=== PATIENT | female | born 1960 | race Caucasian/White ===

== ENCOUNTER 2020-08-11 08:29 | Outpatient (REF) | payer OTHER, SELFPAY ==
[2020-08-11 15:05] LABS: HCT 43.4 % (36.0-46.0); HGB 14.1 g/dL (11.2-15.7); MCH 28.1 pg (27.0-33.0); MCHC 32.5 % (32.0-36.0); MCV 86.5 fL (80-95); MPV 10.3 fL (8.0-11.0); Platelet Count 339 10^3/uL (130-400); RBC 5.02 10^6/uL (3.93-5.22); RDW 13.5 % (11.7-14.6); RDW-SD 42.4 fL; WBC 8.08 10^3/uL (4.4-10.8)
[2020-08-11 15:21] LABS: Anion Gap 11.7 mmol/L (3-11); BUN 22 mg/dL (7-18); CO2 28.3 mmol/L (21.0-32.0); CREATININE 1.1 mg/dL (0.55-1.02); Calcium 9.4 mg/dL (8.5-10.1); Calculated LDL 149 mg/dL (<100); Chloride 103 mmol/L (98-107); Cholesterol 237 mg/dL (<200); Estimated GFR 50.67 (mL/min/1.73m2); Glucose 88 mg/dL (74-106); HDL Cholesterol 63 mg/dL (40-60); Potassium 4.8 mmol/L (3.5-5.1); Sodium 143 mmol/L (136-145); Triglyceride 125 mg/dL (<150)
== END 2020-08-11 08:30 | disposition home or self-care (01) ==
LOC: LBN 08:29
PROVIDERS: PCP Nurse Practitioner Family; Visit Provider Nurse Practitioner Family
DX: Z00.00 Encounter for general adult medical examination without abnormal findings (principal); Z13.220 Encounter for screening for lipoid disorders; Z13.228 Encounter for screening for other metabolic disorders
CPT/HCPCS: 80048; 80061; 85027

== ENCOUNTER 2020-09-29 15:54 | Outpatient (REF) | payer OTHER, SELFPAY ==
--- NOTE | 2020-09-29 08:30 | PAPFT_PTH ---
PATIENT: Ro Padgett LOC: [facility] U#:[id number] AGE/SX: 60/F ROOM: RE09/29/[address]: Niya Urbina : 1960 BED: DIS: 09/29/2020 SPEC #: [id number] RECD: 09/29/20 18:39 STATUS: ALBA REGuanako #: [id number] UMM: 09/29/20 08:[address]: Niya Urbina DEPT: [facility] Cytology RECD BY: Noemy Arellano Tissues: 1 - CX/ENDOCX FOR PAP SMEARS Procedures: PAP THIN PREP/UVM Screening Comments: [id number]
== END 2020-09-29 15:55 | disposition home or self-care (01) ==
LOC: LBN 15:54
PROVIDERS: PCP Nurse Practitioner Family; Visit Provider Nurse Practitioner Family
DX: Z00.00 Encounter for general adult medical examination without abnormal findings (principal); Z12.4 Encounter for screening for malignant neoplasm of cervix
CPT/HCPCS: 88142

== ENCOUNTER 2020-11-26 01:21 | Outpatient (CLI) | payer OTHER, SELFPAY ==
--- NOTE | 2020-11-26 | DI.US_ITS ---
Exam(s) US AAA SCREENING EXAM: US AAA SCREENING CLINICAL HISTORY: SCREENING FOR AAA,FAMILY H/O AAA,Z82.49 COMPARISON: No exams were available for comparison FINDINGS: Abdominal Aorta: Proximal: 1.8 x 1.8 cm Mid: 1.8 x 1.8 cm Distal: 1.8 x 1.8 cm Iliac's: Right: 1.1 x 1.1 cm Left: 0.9 x 1.0 cm There is no evidence of abdominal aortic aneurysm. No incidental para-aortic adenopathy. IMPRESSION: No evidence of abdominal aortic aneurysm. Visualized common iliac arteries also exhibit normal diameters. DATA REPOSITORY:
--- NOTE | 2020-11-26 | DI.MAMMO_ITS ---
Exam(s) MAMMO SCREENING EXAM: MAMMO SCREENING CLINICAL HISTORY: SCREENING, Z12.39 TECHNIQUE: Mammograms were interpreted according to the usual protocol including computer analysis w ith CAD system, tomosynthesis and C-view imaging. COMPARISON: MG MM 3D MAMMO SCREEN HARLEEN W CAD* from 03/07/2018 MG MM 3D MAMMO SCREEN HARLEEN W CAD* from 03/07/2018 FINDINGS: The breasts are composed of scattered fibroglandular densities, Breast Density category B. No suspicious masses or suspicious microcalcifications are seen. No skin thickening or abnormal axillary lymph nodes are seen. There has been no significant change from prior exams. IMPRESSION: BI-RADS Category 1, Negative mammogram Yearly screening mammography is recommended. Breast Density - Category B, scattered fibroglandular densities. A negative radiographic report should not delay biopsy if a dominant or clinically suspicious mass is present. Up to ten percent of cancers are not identified on mammography. A negative report may reinforce clinical impression. Adenosis and dense breasts may obscure an underlying neoplasm. False positive reports average 6 to 10%. Patient will receive a letter notifying them of these results.
== END 2020-11-26 01:41 ==
PROVIDERS: PCP Nurse Practitioner Family; Visit Provider Nurse Practitioner Family
DX: Z12.31 Encounter for screening mammogram for malignant neoplasm of breast (principal); Z82.49 Family history of ischemic heart disease and other diseases of the circulatory system; Z13.6 Encounter for screening for cardiovascular disorders
CPT/HCPCS: 76706; 77063; 77067

== ENCOUNTER 2020-12-03 10:54 | Outpatient (CLI) | payer OTHER, SELFPAY ==
--- NOTE | 2020-12-03 09:00 | DI.RAD_ITS ---
Exam(s) XR KNEE LT 2V AP,LAT EXAM: XR KNEE LT 2V AP,LAT CLINICAL HISTORY: knee pain. TECHNIQUE: 2D digital imaging was performed. COMPARISON: No exams were available for comparison FINDINGS: AP and lateral views of the left knee reveal no evidence fracture nor prominent joint effusion. Padgett nichelle, there are advanced osteoarthritic degenerative changes. There is also a calcified intra-articul ar body measuring 2 by 1.2 cm located in the posterior 0 lateral aspect the joint. This does not hav e the appearance of a typical fabella. IMPRESSION: DATA REPOSITORY: RADIATION DOSE DELIVERED:
--- NOTE | 2020-12-03 09:00 | DI.RAD_ITS ---
Exam(s) XR KNEE RT 2V AP,LAT EXAM: XR KNEE RT 2V AP,LAT CLINICAL HISTORY: knee pain. TECHNIQUE: 2D digital imaging was performed. COMPARISON: CR XR KNEE LT 2V AP,LAT from 12/03/2020 FINDINGS: AP and lateral views right knee reveal advanced osteoarthritic degenerative changes, most prominent i n medial patellofemoral compartments. There is also a joint effusion. No fractures evident. IMPRESSION: DATA REPOSITORY: RADIATION DOSE DELIVERED:
--- NOTE | 2020-12-03 09:00 | DI.RAD_ITS ---
Exam(s) XR STANDING ALIGNMENT EXAM: XR STANDING ALIGNMENT CLINICAL HISTORY: knee pain. TECHNIQUE: 2D digital imaging was performed. COMPARISON: No exams were available for comparison FINDINGS: There advanced degenerative changes in both knees. There is also a prominent calcific density in the posterior lateral aspect of the left knee. Is moderate narrowing of the left hip joint space. Mini mal narrowing of the right hip joint space. Marginal osteophytes are noted in both femoral heads. T here is some tilting of the talar domes bilaterally. No lytic osseous lesions evident. IMPRESSION: DATA REPOSITORY: RADIATION DOSE DELIVERED:
== END 2020-12-03 10:55 | disposition home or self-care (01) ==
LOC: DIORS 10:55
PROVIDERS: PCP Nurse Practitioner Family; Referring Provider Nurse Practitioner Family; Visit Provider Physician Assistant
DX: M25.561 Pain in right knee (principal); M25.562 Pain in left knee
CPT/HCPCS: 73560; 77073

== ENCOUNTER 2020-12-14 08:10 | Day surgery (SDC) | payer OTHER, SELFPAY ==
--- NOTE | 2020-12-14 06:46 | W.COLOREPORT ---
Date of service: 12/14/20 Time of Service: :52 Colonoscopy Report Date of procedure: 12/14/20 Pre-op diagnosis general: Colon Cancer Screening Post-op diagnosis procedure note: other (polyps and mild diverticulosis) Procedure: Colonoscopy with polypectomy Surgeon: Brandi Savage Anesthesia Type: General:No Airway (ASA 2/Jermaine Jaime CRNA) Estimated blood loss (mL): 2 Pathology: other (Ascending and descending polyp) Complications: None Disposition: same day Indications: Ms Padgett is a pleasant 60-year-old female who is here today to discuss her first screening colonoscopy. She has had no GI symptoms. She has no family history of colon or rectal cancer. The procedure was discussed in detail using a pamphlet. Hold aspirin for 5 days prior to the procedure. Risks, benefits and complications have been reviewed. Complications include but are not limited to bleeding, pain, perforation, missed small lesion/polyp, sore throat, aspiration and adverse reaction to the medications. Questions were entertained and answered to their satisfaction and they wished to proceed. No guarantees were given or implied. Colonoscopy under sedation Prep: Miralax/Dulcolax Procedure Start Time: :52 Procedure End Time: :14 Retraction Time: 13 minutes Findings: 2 small sessile polyps, <10 mm in size Procedure Description: After informed consent was obtained the patient was taken to the procedure room and placed in a left decubitous position. Monitors were applied and a time out was done. The patients name, date of , procedure, allergies to medications and metal in their body was reviewed. The patient was then sedated. Once sedated and comfortable a rectal exam was done. External exam was normal. Internal exam revealed a normal sphincter tone and no palpable masses. The scope was then introduced and retro-flexed. NO internal hemorrhoids, polyps or masses were identified on retro-flexion. The scope was then advanced to the cecum without difficulty. The ileocecal vlave and appendiceal orifice were identified. The prep was good. The scope was then slowly retracted over 13 minutes back into the rectum. Polyps were removed with cold forceps in the ascending colon x1 and descending colon x1. There was mild diverticulosis noted. The scope was removed and the patient was woken up and taken back to Same day surgery in stable condition. The patient tolerated the procedure well and there were no immediate complications. Follow up: The patient should follow up in 5 years unless they develop changes in bowel habits or other new gastrointestinal complaints.
--- NOTE | 2020-12-14 06:46 | W.PM.DSUDISC ---
Discharge Plan Disposition Patient Disposition: HOME Condition: Good Discharge Details Reason For Visit: Colonoscopy Attending Provider: Brandi Savage Primary Care Provider: Niya Urbina Home Meds and New Rx's Prescriptions: Continued acetaminophen 500 mg tablet 1,000 mg PO Q6H PRNRF: 0 cetirizine [Zyrtec] 10 mg tablet 10 mg PO DAILY PRNRF: 0 multivitamin Tablet 1 tab PO DAILY RF: 0 naproxen sodium [Aleve] 220 mg Tablet 220 mg PO DIRECTED PRNRF: 0 Discontinued bisacodyl [Dulcolax (bisacodyl)] 5 mg tablet,delayed release (DR/EC) 5 mg PO ONCE Qty: 4 RF: 0 polyethylene glycol 3350 17 gram powder in packet 255 g PO DAILY Qty: 15 RF: 0 Discharge Instructions Instructions: Colorectal Polyps (DC), Diverticulosis (DC) Additional Instructions: Findings: 2 small polyps diverticulosis Follow up: 5 years Please call if you develop: fevers >101.5 Nausea or Vomiting Abdominal pain that is not transient Rectal bleeding that is more then a tbsp A hard abdomen and inability to pass gas DAY SURGERY UNIT POST ENDOSCOPY INSTRUCTIONS Instructions for everyone who is given Anesthesia: For your safety, please do the following for the next 24 Hours: a. Do not drive or operate dangerous equipment b. Do not drink alcohol beverages or use any recreational drugs for the first 24 hours or while taking pain medications. The medications in your body may have a reaction that can be dangerous. c. Do not make any important decisions or sign any important papers 1. Generally there are no restrictions on your activity after a day or so has gone by, but you may feel a bit fatigued for a few days. 2. After you arrive home you may have a light meal and return to a normal diet as you can tolerate it without feeling sick to your stomach. 3. After surgery, you may feel pain or discomfort. This should be only transient, but if it persists please contact your doctor. 4. If there are any questions regarding the findings of your procedure, please feel free to contact your doctor. 6. If you are unable to contact your doctor with a problem, contact the hospital at [phone]. 7. Continue all your regular medications unless directed otherwise. I understand the above instructions and have no questions. Signature of Patient or Responsible Adult Escort Date/Time Name of Responsible Adult Escort Signature of Nurse Date/Time Activity:: Activity as Tolerated Diet:: high fiber diet Discharge Orders Discharge Orders: Discharge Order (Routine); Ordered 12/14/20 Ordered By: Brandi Savage
--- NOTE | 2020-12-14 08:18 | W.ANESPRE ---
General Info Date of Service Date Performed: 12/14/20 Height: 5 ft 6 in Weight: 111.754 kg Body Mass Index (BMI): 39.7 Surgical Procedure: Operation Date: 12/14/20 09:05 Proposed Procedures Side Surgeon p Colonoscopy Brandi Savage MD Meds Allergies and Home Medications Allergies Allergy/AdvReac Type Severity Reaction Status Date / Time No Known Allergies Allergy Verified 12/14/20 08:26 Home Medication Medication Instructions Recorded cetirizine 10 mg tablet 10 mg PO DAILY PRN 08/21/20 multivitamin 1 tab PO DAILY 08/21/20 bisacodyl 5 mg tablet,delayed 5 mg PO ONCE #4 tab 11/27/20 release polyethylene glycol 3350 17 gram 255 g PO DAILY #15 ea 11/27/20 oral powder packet acetaminophen 500 mg tablet 1,000 mg PO Q6H PRN tab 12/03/20 naproxen sodium [Aleve] 220 mg PO DIRECTED PRN 12/11/20 Current Visit Medications: Current Medications Generic Name Dose Route Start Last Admin Trade Name Yo PRN Reason Stop Dose Admin Hyoscyamine Sulfate 0.125 mg 12/14/20 06:47 Hyoscyamine 0.125 Mg Sl/Oral/Chew SL DIRECTED PRN Ringer's Solution 1,000 mls @ 80 mls/hr 12/14/20 06:00 IV 01/10/21 23:59 INFUSION [facility] IV Miscellaneous Supplies 1 each 12/14/20 06:00 Iv Access IV 01/10/21 23:59 DIRECTED DEANN Ondansetron HCl 4 mg 12/14/20 06:47 Ondansetron 4 Mg/2 Ml Vial IVP Q4H PRN PRN Nausea / Vomiting Sodium Chloride 0 ml 12/14/20 06:00 Normal Saline Flush 10 Ml Syr IV 01/10/21 23:59 PRN PRN Sodium Chloride 0 ml 12/14/20 06:00 Normal Saline 10 Ml Vial IJ 01/10/21 23:59 DIRECTED PRN Sterile Water 0 ml 12/14/20 06:00 Water,Injection,Sterile 10 Ml Vial IJ 01/10/21 23:59 DIRECTED PRN PFSH Active Problems Active Problems: Problem Status Onset Code Screening for colon cancer Z12.11 Primary osteoarthritis of left hip M16.12 Primary osteoarthritis of right hip M16.11 Primary osteoarthritis of right knee M17.11 Primary osteoarthritis of left knee M17.12 Medical History Medical History Anxiety Depression Obesity Surgical History Surgical History History of foot surgery Hx of tubal ligation Tobacco Smoking/Tobacco Use Status: Never Alcohol Alcohol Intake: current Alcohol intake frequency: a few times a week Substance Use Substance use: Never Substance use type: marijuana Vital Signs and Lab Results Lab Results Blood Type / Crossmatch: No Data to Display Complete Blood Count: No Data to Display Complete Metabolic Panel: No Data to Display Liver Function Panel: No Data to Display Coagulation Panel: No Data to Display Cardiac Panel: No Data to Display Arterial Blood Gas: No Data to Display Venous Blood Gas: No Data to Display Pancreas Panel: No Data to Display Thyroid Panel: No Data to Display Infectious Disease: No Data to Display Blood Cultures: No Data to Display Toxicology Panel: No Data to Display Anesthesia Assessment and Plan Anesthesia History Personal History: No History of Anesthesia Complications Family History: No Family History of Anesthesia Complications Exercise Tolerance Exercise Tolerance: Metabolic Equivalents>4 Pertinent Negatives Pertinent Negatives: No Symptoms of GERD, No Major Cardiovascular Symptoms or Complaints, No History of CVA/TIA and Other (Marijuana inhalation) Cardiac & Pulmonary Exam Cardiac Exam: Normal S1/S2 Heart Sounds Pulmonary Exam: Clear Bilateral Breath Sounds Airway Exam Known Difficult Airway: No Mallampati Class: 1 Mouth Opening: Normal (> 3cm) Thyromental Distance: Greater than 3 cm Neck Range of Motion: Full ROM Neck Circumference: Normal Teeth Condition: Normal Dentition ASA Classification ASA Score: ASA 2 Emergency Case?: No NPO Status NPO Status: NPO Clears >2 hours, Solids >8 hours Anesthesia Plan Resuscitation Status: Full Code Anesthesia Technique: General Anesthesia Airway Planned: Awake Fiberoptic Monitors Used: Standard Monitors
[2020-12-14 08:20] VITALS: BP 148/88; PULSE 79; RESP 18; TEMP 36.3; O2SAT 100
[2020-12-14] MEDS: Lactated Ringers 1,000 ML 80 ML IV (08:36)
[2020-12-14 08:46] VITALS: BMI 39.7
--- NOTE | 2020-12-14 09:03 | BOWEL_PTH ---
PATIENT: Ro Padgett LOC: [facility] U#:[id number] AGE/SX: 60/F ROOM: RE12/14/[address]: Brandi Savage MD : 1960 BED: DIS: 12/14/2020 SPEC #: [id number] RECD: 12/14/20 12:49 STATUS: ALBA REGuanako #: [id number] UMM: 12/14/20 09:[address]: Brandi Savage DEPT: Surgical Specimen RECD BY: Noemy Arellano ENTERED: 12/14/20 12:49 SP TYPE: Bowel OTHR DR: Niya Urbina Tissues: 1 - BIOPSY BOWEL 2 - BIOPSY BOWEL Procedures: GROSS AND MICRO LEVEL 4 Comments: [id number]
[2020-12-14 09:24] VITALS: BP 101/67; PULSE 70; RESP 18; TEMP 36.4; O2SAT 96
--- NOTE | 2020-12-14 09:33 | W.ANESPOSTOP ---
Postoperative Evaluation Date, Time and Location Date Performed: 12/14/20 Time Performed: 09:33 Patient Location: Day Surgery Unit Vital Signs Most Recent Imported Vital Signs: Most Recent Vital Signs Temp Pulse Resp BP Pulse Ox 36.4 C L 70 18 101/67 96 12/14/20 09:24 12/14/20 09:24 12/14/20 09:24 12/14/20 09:24 12/14/20 09:24 Pain Score Most Recent Pain Score: Most Recent Pain Score Pain Level 0 12/14/20 08:20 Assessment Mental Status: Awake (Alert & Oriented to Patient Baseline) Airway and Respiratory Function: Patent airway with normal (patient baseline) respiratory exam Cardiovascular Function: Hemodynamically Stable Hydration Status: Adequately Hydrated Nausea & Vomiting: No Nausea or Vomiting Pain: Pt. Denies Any Pain Peripheral Nerve Block: Patient did not receive a nerve block
[2020-12-14 09:53] VITALS: BP 128/86; PULSE 60; RESP 16; TEMP 36.4; O2SAT 98
== END 2020-12-14 10:20 | disposition home or self-care (01) ==
LOC: SUR 08:11
PROVIDERS: PCP Nurse Practitioner Family; Visit Provider Surgery
PROC: 0DJD8ZZ Inspection of Lower Intestinal Tract, Via Natural or Artificial Opening Endoscopic (ICD-10-PCS; CPT 45378; principal; 2020-12-14 09:00)
DX: Z12.11 Encounter for screening for malignant neoplasm of colon (principal); K57.30 Diverticulosis of large intestine without perforation or abscess without bleeding; D12.2 Benign neoplasm of ascending colon
CPT/HCPCS: 45380; 88305; J2001

== ENCOUNTER 2021-08-21 14:11 | Outpatient (REF) | payer BC, SELFPAY ==
[2021-08-21 18:24] LABS: Abs Immature Grans 0.01 10^3/uL (0.0-0.06); Absolute Basophil Count 0.03 10^3/uL (0.0-0.2); Absolute Eosinophil Count 0.38 10^3/uL (0.0-0.7); Absolute Lymphocyte Count 2.24 10^3/uL (1.2-3.4); Absolute Monocyte Count 0.48 10^3/uL (0.1-0.8); Absolute Neutrophil Count 3.93 10^3/uL (1.2-6.7); Basophils % 0.4; Eosinophils % 5.4; HCT 42.9 % (36.0-46.0); HGB 14.1 g/dL (11.2-15.7); Immature Grans % 0.1; Lymphocytes % 31.7; MCH 28.8 pg (27.0-33.0); MCHC 32.9 % (32.0-36.0); MCV 87.6 fL (80-95); MPV 10.6 fL (8.0-11.0); Monocytes % 6.8; Neutrophils % 55.6; Platelet Count 360 10^3/uL (130-400); RDW 12.7 % (11.7-14.6); RDW-SD 40.7 fL; WBC 7.07 10^3/uL (4.4-10.8)
[2021-08-21 20:35] LABS: ALT 27 U/L (14-59); AST 19 U/L (15-37); Albumin 4.1 g/dL (3.4-5.0); Alkaline Phosphatase 95 U/L (46-116); Anion Gap 10.9 mmol/L (3-11); BUN 13 mg/dL (7-18); Bilirubin, Total 0.4 mg/dL (0.2-1.0); CO2 25.1 mmol/L (21.0-32.0); CREATININE 1.1 mg/dL (0.55-1.02); Calcium 9.7 mg/dL (8.5-10.1); Chloride 104 mmol/L (98-107); Glucose 102 mg/dL (74-106); Lipase 109 U/L (73-393); Potassium 4.5 mmol/L (3.5-5.1); Sodium 140 mmol/L (136-145)
== END 2021-08-21 14:12 | disposition home or self-care (01) ==
LOC: NCHCN 14:11
PROVIDERS: PCP Nurse Practitioner Family; Visit Provider Physician Assistant Medical
DX: R10.9 Unspecified abdominal pain (principal)
CPT/HCPCS: 80053; 83690; 85025

== ENCOUNTER → 2021-08-25 01:26 | Outpatient (CLI) | payer BC, SELFPAY ==
[2021-08-25] MEDS: Omnipaque 350 MG/ML 50 ML BTL IJ (10:38)
[2021-08-25] MEDS: Breeza Beverage 473 ML BTL PO (10:39)
[2021-08-25] MEDS: Omnipaque 350 MG/ML 100 ML BTL IJ (10:40)
--- NOTE | 2021-08-25 10:41 | DI.CT_ITS ---
Exam(s) CT ABDOMEN PELVIS W EXAM: CT ABDOMEN PELVIS W INDICATION: ABD PAIN,R10.9,BILAT UQ AND LLQ,? DIVERTICULITIS OR SBO. COMPARISON: No exams were available for comparison TECHNIQUE: FINDINGS: CT examination of the abdomen and pelvis was performed with a bolus infusion of 100 cc of Omnipaque 3 50. Images obtained through the lung bases are unremarkable. The liver is unremarkable in appearance. Gallbladder and bile ducts are CT normal. Pancreas appears normal. Spleen is unremarkable in appearance. Adrenals appear normal. The kidneys are unremarkable with no evidence of hydronephrosis, nephrolithiasis, or renal mass.. Ur inary bladder unremarkable. Abdominal aorta is of normal diameter and no major vascular abnormality is seen. No abdominal wall hernia. No abdominal or pelvic adenopathy. ENTOMOLOGY PROFESSOR structures appear intact. Appendix is normal. No evidence of diverticulitis or bowel obstruction. IMPRESSION: Negative CT examination of the abdomen and pelvis. RADIATION DOSE DELIVERED: 1,421.18mGy.cm Total DLP 1,421.18mGy.cm Total DLP !Error CTDIvol RADIATION OPTIMIZATION: All CT scans at this facility use at least one of these dose optimization te chniques: automated exposure control; mA and/or kV adjustment per patient size (includes targeted exa ms where dose is matched to clinical indication); or iterative reconstruction.
== END ==
PROVIDERS: PCP Nurse Practitioner Family; Visit Provider Physician Assistant Medical
DX: R10.11 Right upper quadrant pain (principal); R10.12 Left upper quadrant pain; R10.32 Left lower quadrant pain
CPT/HCPCS: 74177; J3490; Q9967

== ENCOUNTER 2021-09-23 13:03 | Outpatient (REF) | payer BC, SELFPAY ==
[2021-09-23 15:59] LABS: TSH (W/Ref FT4) 0.33 uIU/mL (0.36-3.74)
[2021-09-23 16:15] LABS: FREE T4 1.12 ng/dL (0.76-1.46)
== END 2021-09-23 13:04 | disposition home or self-care (01) ==
LOC: NCHCN 13:03
PROVIDERS: PCP Nurse Practitioner Family; Visit Provider Nurse Practitioner Family
DX: Z13.29 Encounter for screening for other suspected endocrine disorder (principal)
CPT/HCPCS: 84439; 84443

== ENCOUNTER 2022-04-11 03:57 | Outpatient (CLI) | payer BC, SELFPAY ==
[2022-04-11 11:01] LABS: HCT 42.3 % (36.0-46.0); MCHC 33.1 % (32.0-36.0); MCV 88 fL (80-95); MPV 9.3 fL (8.0-11.0); Platelet Count 390 10^3/uL (130-400); RBC 4.82 10^6/uL (3.93-5.22); RDW 12.2 % (11.7-14.6); RDW-SD 39.5 fL; WBC 9.94 10^3/uL (4.4-10.8)
[2022-04-11 11:33] LABS: Anion Gap 7.6 mmol/L (3-11); BUN 34 mg/dL (7-18); CO2 31.4 mmol/L (21.0-32.0); CREATININE 1.4 mg/dL (0.55-1.02); Calcium 9.5 mg/dL (8.5-10.1); Chloride 99 mmol/L (98-107); Estimated GFR 42.54 (mL/min/1.73m2); Glucose 90 mg/dL (74-106); Potassium 3.7 mmol/L (3.5-5.1); Sodium 138 mmol/L (136-145)
== END 2022-04-11 03:58 | disposition home or self-care (01) ==
LOC: LBO 03:57
PROVIDERS: PCP Nurse Practitioner Family; Visit Provider Student in an Organized Health Care Education/Training Program
DX: M17.11 Unilateral primary osteoarthritis, right knee (principal); M17.12 Unilateral primary osteoarthritis, left knee; Z01.818 Encounter for other preprocedural examination
CPT/HCPCS: 36415; 80048; 85027

== ENCOUNTER 2022-04-20 05:59 | Day surgery (SDC) | payer BC, SELFPAY ==
[2022-04-20] VITALS (13 sets, daily range): BP systolic 90–131; BP diastolic 45–81; PULSE 49–84; RESP 9–16; TEMP 35.9–36.6; O2SAT 94–100; BMI 38.3
[2022-04-20] MEDS: Gabapentin 300 MG CAP PO (06:37)
[2022-04-20] MEDS: Celecoxib 200 MG CAP 400 MG PO (06:37)
[2022-04-20] MEDS: Acetaminophen 500 MG TAB 1000 MG PO (06:37)
[2022-04-20] MEDS: Lactated Ringers 1,000 ML 80 ML IV ×2 (06:45→10:52)
[2022-04-20 07:07] LABS: Source Nasal/Nares
--- NOTE | 2022-04-20 07:08 | W.ANESPRE ---
General Info Date of Service Date Performed: 04/20/22 Height: 5 ft 6 in Weight: 107.8 kg Body Mass Index (BMI): 38.3 Surgical Procedure: Operation Date: 04/20/22 08:05 Proposed Procedure Side Surgeon p Knee Total Arthroplasty Bilateral Bilateral Jesus Pearl MD Meds Allergies and Home Medications Allergies Allergy/AdvReac Type Severity Reaction Status Date / Time No Known Allergies Allergy Verified 04/20/22 06:11 Home Medication Medication Instructions Recorded cetirizine 10 mg tablet (Zyrtec) 10 mg PO DAILY PRN 08/21/20 multivitamin 1 tab PO DAILY 08/21/20 acetaminophen 500 mg tablet 1,000 mg PO Q6H PRN 12/03/20 omeprazole 20 mg capsule,delayed 20 mg PO DAILY GERD #60 caps 09/26/21 release gabapentin 300 mg capsule 300 mg PO DAILY 11/18/21 hydrochlorothiazide 25 mg tablet 25 mg PO DAILY 11/18/21 lisinopril 10 mg tablet 10 mg PO DAILY 04/12/22 aspirin 81 mg tablet,delayed 81 mg PO BID #60 tabs 04/20/22 release celecoxib 200 mg capsule 200 mg PO BID PRN pain #60 caps 04/20/22 dexamethasone 4 mg tablet 4 mg PO DAILY #2 tabs 04/20/22 oxycodone 5 mg tablet 5 mg PO Q4H #24 tabs 04/20/22 polyethylene glycol 3350 17 gram 17 g PO DAILY PRN 04/20/22 oral powder packet (Miralax) Current Visit Medications: Current Medications Generic Name Dose Route Start Last Admin Trade Name Freq PRN Reason Stop Dose Admin Acetaminophen 1,000 mg 04/20/22 06:00 04/20/22 06:37 Acetaminophen 500 Mg Tab PO 1,000 mg PREOP DEANN Administration Celecoxib 400 mg 04/20/22 06:00 04/20/22 06:37 Celecoxib 200 Mg Cap PO 400 mg PREOP DEANN Administration Gabapentin 300 mg 04/20/22 06:00 04/20/22 06:37 Gabapentin 300 Mg Cap PO 300 mg PREOP DEANN Administration Tranexamic Acid 1,000 mg/ 60 mls @ 360 mls/hr 04/20/22 06:00 Sodium Chloride IVPB 04/20/22 18:00 PREOP DEANN Ringer's Solution 1,000 mls @ 80 mls/hr 04/20/22 06:00 04/20/22 06:45 IV 05/19/22 23:59 80 mls/hr INFUSION DEANN Administration Cefazolin Sodium/Dextrose 2 gm in 50 mls @ 100 mls/hr 04/20/22 06:00 Ancef Duplex IVPB 05/19/22 23:59 PREOP DEANN IV Miscellaneous Supplies 1 each 04/20/22 06:00 Iv Access IV 05/19/22 23:59 DIRECTED DEANN Sodium Chloride 0 ml 04/20/22 06:00 Normal Saline Flush 10 Ml Syr IV 05/19/22 23:59 PRN PRN Sodium Chloride 0 ml 04/20/22 06:00 Normal Saline 10 Ml Vial IJ 05/19/22 23:59 DIRECTED PRN Sterile Water 0 ml 04/20/22 06:00 Water,Injection,Sterile 10 Ml Vial IJ 05/19/22 23:59 DIRECTED PRN PFSH Active Problems Active Problems: Problem Status Onset Code Hypertension I10 Diverticular disease K57.90 BMI 40.0-44.9, adult Z68.41 Epigastric pain R10.13 Colon polyp, hyperplastic ~12/2020 K63.5 Medical History Medical History Anxiety Depression Family history of abdominal aortic aneurysm (AAA) Obesity Screening for colon cancer Tubular adenoma (~12/2020) Surgical History Surgical History History of colonoscopy (~12/2020) History of foot surgery Bilateral haglauds deformity Hx of tubal ligation Tobacco Smoking/Tobacco Use Status: Never Alcohol Alcohol Intake: current Alcohol intake frequency: a few times a week Substance Use Substance use: Occasionally Substance use type: marijuana Details: Last marijuana use 12/12 Vital Signs and Lab Results Vital Signs Most Recent Vital Signs in EMR: Most Recent Vital Signs Temp Pulse Resp BP Pulse Ox 36.5 C 75 16 122/74 99 04/20/22 06:16 04/20/22 06:16 04/20/22 06:16 04/20/22 06:16 04/20/22 06:16 Lab Results Blood Type / Crossmatch: No Data to Display Complete Blood Count: White Blood Count 9.94 10^3/uL (4.4-10.8) 12/05/22 10:53 Red Blood Count 4.82 10^6/uL (3.93-5.22) 04/11/22 10:53 Hemoglobin 14.0 g/dL (11.2-15.7) 04/11/22 10:53 Hematocrit 42.3 % (36.0-46.0) 04/11/22 10:53 Platelet Count 390 10^3/uL (130-400) 04/11/22 10:53 Complete Metabolic Panel: Sodium 138 mmol/L (136-145) 04/11/22 10:53 Potassium 3.7 mmol/L (3.5-5.1) 04/11/22 10:53 Chloride 99 mmol/L (98-107) 04/11/22 10:53 Carbon Dioxide 31.4 mmol/L (21.0-32.0) 04/11/22 10:53 BUN 34 mg/dL (7-18) H 04/11/22 10:53 Creatinine 1.4 mg/dL (0.55-1.02) H 04/11/22 10:53 Est GFR (CKD-EPI 2020) 42.54 (mL/min/1.73m2) 04/11/22 10:53 Calcium 9.5 mg/dL (8.5-10.1) 04/11/22 10:53 Glucose 90 mg/dL (74-106) 04/11/22 10:53 Liver Function Panel: No Data to Display Coagulation Panel: No Data to Display Cardiac Panel: No Data to Display Arterial Blood Gas: No Data to Display Venous Blood Gas: No Data to Display Pancreas Panel: No Data to Display Thyroid Panel: No Data to Display Infectious Disease: Coronavirus (COVID-19)(PCR) Negative (Negative) 04/20/22 06:57 Coronavirus 2019 Source Nasal/Nares 04/20/22 06:57 Blood Cultures: No Data to Display Toxicology Panel: No Data to Display Anesthesia Assessment and Plan Anesthesia History Personal History: No History of Anesthesia Complications Family History: No Family History of Anesthesia Complications Exercise Tolerance Exercise Tolerance: Metabolic Equivalents>4 Pertinent Negatives Pertinent Negatives: No Symptoms of GERD, No Major Cardiovascular Symptoms or Complaints, No Major Pulmonary Symptoms or Complaints and No History of CVA/TIA Cardiac & Pulmonary Exam Cardiac Exam: Normal S1/S2 Heart Sounds Pulmonary Exam: Clear Bilateral Breath Sounds Implantable Cardiac Device Does patient have a Pacemaker or an ICD?: No Airway Exam Known Difficult Airway: No Mallampati Class: 1 Mouth Opening: Normal (> 3cm) Thyromental Distance: Greater than 3 cm Neck Range of Motion: Full ROM Neck Circumference: Normal Teeth Condition: Normal Dentition ASA Classification ASA Score: ASA 3 Emergency Case?: No NPO Status NPO Status: NPO Clears >2 hours, Solids >8 hours Anesthesia Plan Resuscitation Status: Full Code Anesthesia Technique: Spinal Anesthesia Airway Planned: Natural Airway Pain Management: Surgeon and patient request nerve block Monitors Used: Standard Monitors
--- NOTE | 2022-04-20 07:26 | DSE_ITS ---
Date of service: 04/20/22 Time of Service: 13:38 DS: Diagnosis Discharge Diagnosis (1) Primary osteoarthritis of left knee: Status: Acute (2) Primary osteoarthritis of right knee: Status: Acute Discharge Plan Disposition Patient Disposition: Home Discharge Details Reason For Visit: Bilateral Knee DJD Attending Provider: Jesus Pearl Primary Care Provider: Niya Urbina Home Meds and New Rx's Prescriptions: New aspirin 81 mg tablet,delayed release (DR/EC) 81 mg PO BID Qty: 60 0RF celecoxib 200 mg capsule 200 mg PO BID PRN (Reason: pain) Qty: 60 1RF dexamethasone 4 mg tablet 4 mg PO DAILY Qty: 2 0RF Rx Instructions: Starting Post-Operative Day #1 (Day after surgery) oxycodone 5 mg tablet 5 mg PO Q4H Qty: 24 0RF Continued omeprazole 20 mg capsule,delayed release(DR/EC) 20 mg PO DAILY Qty: 60 0RF gabapentin 300 mg capsule 300 mg PO DAILY hydrochlorothiazide 25 mg tablet 25 mg PO DAILY acetaminophen 500 mg tablet 1,000 mg PO Q6H PRN cetirizine [Zyrtec] 10 mg tablet 10 mg PO DAILY PRN multivitamin Tablet 1 tab PO DAILY lisinopril 10 mg tablet 10 mg PO DAILY polyethylene glycol 3350 [Miralax] 17 gram Powder In Packet 17 g PO DAILY PRN Discontinued meloxicam 15 mg tablet 15 mg PO DAILY Discharge Instructions Additional Instructions: Total Knee Discharge Instructions Activity: The most important activity is to walk and to work on gentle motion (both flexion and extension). You should try to take short walks a few times a day. It is important that when resting you work on keeping the knee straight. Avoid putting a pillow behind the knee as this will encourage flexion. Work on range of motion exercises as provided by Physical Therapy. - Start outpatient physical therapy within 2 weeks. - You should wear the NATAN hose on both legs for 2 weeks. You may remove these at night. You may also use any compression sock in place of the NATAN hose. - Utilize [employer] to review exercises, see videos on exercises and obtain basic information pertaining to your surgery and your recovery. Dressing: Remove the Torsten wrap by 2 days after your surgery and put on the NATAN stocking given to you from the hospital. Keep the surgical dressing (underneath the TORSTEN wrap) in place for at least one week. After the first week it may be removed and replaced with light gauze and tape or nothing. The wound and dressing may get wet after 3 days but avoid soaking the dressing or otherwise it will need to be changed. Many people prefer covering the dressing with cling wrap (saran wrap) to minimize it from getting soaked. If it gets wet, just pat dry. If it starts to peel off then it will need to be changed. Medications: - You should take Tylenol and anti-inflammatory Celebrex as your primary pain control medications. If the Celebrex is too expensive or not covered, please call the office for another alternative (Advil/Ibuprofen or Naproxen/Aleve) - You have been prescribed a stronger pain medication Oxycodone for breakthrough pain, take as needed as prescribed. - You will continue your stomach acid reduction agent Omeprazole to help reduce stomach acid and reflux. - You should continue your Gabapentin to take at night for restlessness and nerve pain. - You will be taking Aspirin 81mg twice a day for DVT prevention unless instructed otherwise. - You have also been prescribed Decadron to take to control post-operative nausea and pain. You will start this tomorrow. - If you have constipation you should take Colace or Miralax (both [id number]). It takes most people 3-4 days to have a bowel movement. Follow-up: 2 weeks If you have any acute concerns or questions, please do not hesitate to contact the office at [phone]. You may contact Dr. Pearl with any questions after hours through the hospital at [phone] or on his cell phone at [phone]. Referrals: Jesus Pearl MD [ [facility] STAFF PHYSICIAN] - Equipment/Supplies: Walker Activity:: Activity as Tolerated Remove Dressings/Wound Care:: Do Not Remove Shower/Bathe:: 72 hours Diet:: As Tolerated Discharge Orders Discharge Orders: Discharge Order (Routine); Ordered 04/20/22 Ordered By: Jesus Pearl DS: Summary Time Spent with Patient providing and/or coordinating discharge services: Less than 30 minutes Status at Discharge Functional status at discharge: uses cane/walker Overall status at discharge: patient is progressing back to baseline Mental Status: mental status grossly normal Speech and Movement: speech and movement normal Mood: congruent mood Affect: normal affect Exam Psych Mental Status: mental status grossly normal Speech and Movement: speech and movement normal Mood: congruent mood Affect: normal affect DS: Data Vitals/I&O Vitals and I&O: Vital Signs Temperature 36.5 C 04/20/22 06:16 Pulse 75 04/20/22 06:16 Pulse Rhythm Regular 04/20/22 06:16 Respiratory Rate 16 04/20/22 06:16 Respiratory Depth Normal 04/20/22 06:16 Blood Pressure 122/74 04/20/22 06:16 Pulse Oximetry 99 04/20/22 06:16 Oxygen Delivery Method Room Air 04/20/22 06:16 Oxygen Flow Rate 0 04/20/22 06:16 Pain Level 0 04/20/22 06:16 Intake & Output 04/19/22 04/19/22 04/20/22 11:59 23:59 11:59 Weight 107.8 kg Other: Voiding Methods Toilet Data Completed and Pending Labs on day of discharge: Labs from last 24 hours 04/20/22 06:57 COVID-19 Source Nasal/Nares SARS-CoV-2 (PCR) Pending [facility] All Active Problems Primary osteoarthritis of left hip (Acute) Primary osteoarthritis of right hip (Acute) Primary osteoarthritis of right knee (Acute) Depo-medrol injection: 04/20/2021 Primary osteoarthritis of left knee (Acute) Steroid injection: 04/20/2021; 12/03/2020 Hypertension (Chronic) Diverticular disease (Acute) BMI 40.0-44.9, adult (Acute) Epigastric pain (Acute) Colon polyp, hyperplastic (Acute ~12/2020) Medical History Anxiety Depression Family history of abdominal aortic aneurysm (AAA) Obesity Screening for colon cancer Tubular adenoma (~12/2020) Surgical History History of colonoscopy (~12/2020) History of foot surgery Bilateral haglauds deformity Hx of tubal ligation Social History Smoking/Tobacco Use Status: Never Smoking risk assessment performed?: Yes Alcohol Intake: current Alcohol Intake frequency: a few times a week Drug use: Occasionally Substance use type: marijuana Details: Last marijuana use 12/12 Current gender identity: female Do you feel safe at home: Yes Do you feel safe in your relationship?: Yes
[2022-04-20 07:38] LABS: COVID-19 PCR Negative (Negative)
[2022-04-20] MEDS: ceFAZolin 2 GM/50 ML BAG IVPB (07:44)
--- NOTE | 2022-04-20 08:57 | W.ANESNERVE ---
Nerve Block Single Injection Procedure Date and Time Date Performed: 04/20/22 Procedure Start: 07:27 Location Where Procedure Performed Procedure Location: Day Surgery Unit Reason Performed: Postoperative Analgesia Requesting Provider: Jesus Pearl Timeout Performed Timeout Performed: Yes Monitoring Used ECG, Blood Pressure and SpO2 Sterility Sterility: Hand Hygiene, Surgical Cap, Surgical Mask, Sterile Gloves and Chlorhexidine Sedation Given During Procedure Sedation Given (Indicate Dose Given): No Sedation given Patient Mental Status Patient Mental Status: Awake Nerve Block 1st Nerve Block: Laterality: Bilateral Block Type: Adductor Canal Needle / Catheter Used: 100mm SonoPlex II Local Anesthetic Bolus (Indicate Dose Given): Lidocaine used for local infiltration of skin, Injected in 3-5ml increments after negative blood aspiration, Half of Total block solution given into each side and Bupivacaine 0.25% Dose:: 30 ml Additives (Indicate Dose Given): None Ultrasound: Sterile probe cover and gel used Ultrasound Image Saved?: Yes Nerve Stimulator: Not Used Paresthesia: None Procedure Tolerated: No Complications and Patient tolerated well Procedure Outcome: Successful Performed By: Caesar Mosquera
--- NOTE | 2022-04-20 13:17 | W.ANESPOSTOP ---
Postoperative Evaluation Date, Time and Location Date Performed: 04/20/22 Time Performed: 13:17 Patient Location: Day Surgery Unit Vital Signs Most Recent Imported Vital Signs: Most Recent Vital Signs Temp Pulse Resp BP Pulse Ox 36.0 C L 66 16 109/67 98 04/20/22 12:51 04/20/22 12:51 04/20/22 12:51 04/20/22 12:51 04/20/22 12:51 Pain Score Most Recent Pain Score: Most Recent Pain Score Pain Level 0 04/20/22 12:14 Assessment Mental Status: Awake (Alert & Oriented to Patient Baseline) Airway and Respiratory Function: Patent airway with normal (patient baseline) respiratory exam Cardiovascular Function: Hemodynamically Stable Hydration Status: Adequately Hydrated Nausea & Vomiting: No Nausea or Vomiting Pain: Pt. Denies Any Pain Peripheral Nerve Block: Regional nerve block not resolved at time of post operative discharge
--- NOTE | 2022-04-20 13:39 | W.PM.OP ---
Date of service: 04/20/22 Time of Service: 11:10 Operative Note Operative Note DATE OF PROCEDURE: 04/20/22 PRE-OP DIAGNOSIS: Bilateral Knee Osteoarthritis POST-OP DIAGNOSIS: same PROCEDURE: Bilateral Total Knee Replacement with Intraoperative Navigation SURGEON: Jesus Pearl DOLLYMAN: Elliott Gill ANESTHESIA TYPE: General LMA/ETT and Spinal Refer to Anesthesia Record ESTIMATED BLOOD LOSS: 300 PATHOLOGY: none sent TOURNIQUET TIME: 0 COMPLICATIONS: None Patient was transported to: PACU Patient's condition: stable Implants: RIGHT: 1. Depuy Attune Cementless Cruciate Retaining Femoral Component, Size 7 2. Depuy Attune Cementless Rotating Platform Tibial Component, Size 6 3. Depuy Attune 7x5 CR/RP Poly 4. Depuy Attune Patellar Component, Size 38 LEFT: 1. Depuy Attune Cementless Cruciate Retaining Femoral Component, Size 6 2. Depuy Attune Cementless Rotating Platform Tibial Component, Size 6 3. Depuy Attune 6x7 CR/RP Poly 4. Depuy Attune Patellar Component, Size 35 Indications: I have seen Ro in clinic for symptoms of BILATERAL knee arthritis, confirmed with radiographic findings. Ro has exhausted nonoperative methods and was having significant limitations in daily function and desired better function and less pain. I discussed the technical details of a knee replacement. I explained the risks of the procedure to include, but not limited to, bleeding, infection, pain, stiffness, fracture, damage to nerves and vessels, damage to muscles and tendons, loosening, need for repeat procedure, blood clot and cardiopulmonary demise. Despite these risks, Ro elected to proceed. Findings: There was significant signs of arthritis throughout the knee. Procedure Description: Ro was greeted in the preoperative holding area where the correct side was identified and marked. The consent was reviewed with the patient and signed. The history and physical was updated. All questions were answered. Preoperative mediacations were administered: Acetaminophen 1000mg, Celebrex 400mg, and Gabapentin 300mg. An adductor canal block was then administered by the anesthesia team in the PACU. Ro was taken back to the operating room. A spinal anesthestic was then administered. The patient was placed into the supine position on the operating room table. Posts were placed for positioning during the procedure. All bony prominences were well padded. Prophylactic antibiotics in the form of Cefazolin were administered. 1g of Tranxemic Acid was given intravenously within 30 minutes of incision. Both legs were then prepped with Chloraprep and draped in a standard fashion with impervious stockinette. RIGHT KNEE: A second prep with Chloraprep was performed prior to application of Iodine impregnated skin protection on the right knee. A timeout to confirm correct identity, side and site, procedure, allergies, anesthesia, and medical concerns was performed. With the knee in some flexion, a midline incision was made overlying the knee. Full thickness skin flaps were raised once the extensor mechanism was encountered. These were raised medially and laterally. Any bleeding was controlled with electrocautery. Once the extensor mechanism was fully exposed, a medial parapatellar arthrotomy was performed in a flexed position. All bleeding from the arthrotomy and the geniculate arteries was coagulated. A medial subperiosteal peel was performed with electrocautery to the midcoronal plane. The fat pad was removed while keeping the patellar tendon protected. The anterior distal femur synovium was removed for later visualization. The ACL and PCL were resected and the anterior horn of the lateral meniscus was transected. The knee was then flexed with the patella everted. Large osteophytes from the tibia were removed. Large osteophytes from the femur were removed. A single starting pin was then placed 1cm anterior to the PCL insertion and the notch in the direction of the femoral head. The OrthoAlign device was applied over the pin. It was oriented to be in line with the epicondylar axis and the trochlear groove. It was then pinned into place. The navigation computer was then turned on and calibrated. The distal femur cut was set at 2 degrees valgus and 3 degrees flexion. The distal femur cutting guide then was positioned for a 11mm cut. The distal femur was cut with an oscillating saw while protecting the soft tissues. The tibia was then addressed. The OrthoAlign device was placed over the tibial tubercle and medial tibia and secured into position. Once again, OrthoAlign was calibrated and then set for a 3 degrees of varus cut and 6 degrees of posterior slope. With this locked into position, the cut thickness stylus was used to assess cut thickness. This was a balance cut taking approximately 6 mm from the medial side and 7 mm from the lateral side. This was then held in position and pinned into place with 2 additional pins and a cross pin for stability. The medial and lateral collateral ligaments were protected and the cut was performed. With this completed, it was assessed and noted to be of appropriate dimensions. The guide and OrthoAlign was removed. A spacer block was inserted and the knee was brought into extension to ensure enough space was present. The femur was then sized as a size 7. The Orthoalign gap balancing device was then placed in extension. This was used to ensure that the ligaments were properly balanced with up to 2 to 3 mm laxity laterally compared medially. The extension gap was measured as 16mm. The knee was then brought into 90 degrees of flexion and the ligament roller skates assembler was once again placed. Under the same amount of force the flexion gap was measured. The attending specific jig was placed and the flexion gap was made to match the extension gap. The 4-in-1 cutting guide was the placed. An toby wing was used to confirm appropriate position of the anterior cut to avoid notching. This cutting guide was ensured to be flush on the cut surface and then pinned into place with headed pins. While protecting the soft tissues, quad tendon, and collateral ligaments, the anterior and posterior cuts were performed with a saw. The central two pins were removed and the posterior and anterior chamfers were cut next. The notch-cutting guide was placed. This was pinned to lateralize the femoral component as much as possible while keeping it flush on the cut surface. This was then pinned into position. A saw was used to make the notch cut. A rasp smoothed the cut surfaces. The medial and lateral menisci were removed. A trial femoral component was then inserted, impacted down to the cut surfaces, and the lug holes were drilled. A provisional trial tibial component was placed and the knee was brought through range of motion. There was noted to be excellent extension and flexion. There was no significant instability. The patella was tracking without thumbs. A size 5mm polyethylene component provided the best range of motion and stability with less than 2mm gapping with medial and lateral stress and full extension without significant hyperextension. The tibial cut surface was fully exposed. The tibia was then sized as a 6. The tibia had been previously marked during trialing to correspond to the center of the tibial component to help with rotation. The trial was aligned to this elliott, approximately rotated to the medial 1/3rd of the tibial tubercle. The trial was pinned into place. The tibia was prepared with a reamer and a keel punch and lug holes. The knee was then brought into extension and the patella was measured as 26mm. Using the patellar clamp and cut guide, this was resected to a flat surface with at least 13mm of thickness remaining. The size 38 patella fit the best. This was oriented and then clamped into position. The lugs were drilled. The trial components were removed. The final components were opened on the back table. The periosteal and capsular tissues, especially posteriorly, around the knee were then systematically injected with a periarticular cocktail consisting of 246mg of Ropivacaine, 0.5mg of Epinephrine, 0.08mg of Clonidine, and 30mg of Ketorolac, diluted to 100cc. On the back table, with the implants opened, the cement was mixed. One batch of high viscosity cement was prepared with vacuum assistance. After the cement was ready a small amount was placed on the cut surface of the patella and the patellar button was clamped into position and held. While the cement was hardening, the cementless knee components were placed. Starting with the tibial component, the tibia was subluxed anteriorly and the lug holes of the component were lined up. The tibia was then impacted with an impactor and mallet until the tibial component was in contact with the tibia. The final polyethylene component was inserted. Then, the femoral component was inserted. The lug holes were aligned and the component was impacted into position. The knee was irrigated with Surgiphor Betadine solution. This was allowed to sit in the knee for 3 minutes and then it was thoroughly irrigated out with saline. After the cement had finally cured, approximately 15min, the clamp was removed from the patella and the knee was taken through range of motion. The patella was tracking with a no-thumbs technique. The capsule was then reapproximated with a No. 1 Vicryl at multiple locations. The capsule was finally closed with a No. 2 Stratafix, barbed suture. The second dosing of 1g TXA was started. Deep tissues were then reapproximated with 0 Vicryl and 2-0 Vicryl. The skin was closed with a running 3-0 Monocryl in a subcuticular fashion. This was reinforced with skin glue. A Mepilex silver dressing was applied. LEFT KNEE: While the right knee was being clsoed, a second prep with Chloraprep was performed prior to application of Iodine impregnated skin protection on the left knee. With the knee in some flexion, a midline incision was made overlying the knee. Full thickness skin flaps were raised once the extensor mechanism was encountered. These were raised medially and laterally. Any bleeding was controlled with electrocautery. Once the extensor mechanism was fully exposed, a medial parapatellar arthrotomy was performed in a flexed position. All bleeding from the arthrotomy and the geniculate arteries was coagulated. A medial subperiosteal peel was performed with electrocautery to the midcoronal plane. The fat pad was removed while keeping the patellar tendon protected. The anterior distal femur synovium was removed for later visualization. The ACL and PCL were resected and the anterior horn of the lateral meniscus was transected. The knee was then flexed with the patella everted. Large osteophytes from the tibia were removed. Large osteophytes from the femur were removed. A single starting pin was then placed 1cm anterior to the PCL insertion and the notch in the direction of the femoral head. The OrthoAlign device was applied over the pin. It was oriented to be in line with the epicondylar axis and the trochlear groove. It was then pinned into place. The navigation computer was then turned on and calibrated. The distal femur cut was set at 2 degrees valgus and 3 degrees flexion. The distal femur cutting guide then was positioned for a 11mm cut. The distal femur was cut with an oscillating saw while protecting the soft tissues. The tibia was then addressed. The OrthoAlign device was placed over the tibial tubercle and medial tibia and secured into position. Once again, OrthoAlign was calibrated and then set for a 3 degrees of varus cut and 6 degrees of posterior slope. With this locked into position, the cut thickness stylus was used to assess cut thickness. This was a balance cut taking approximately 5 mm from the medial side and 7 mm from the lateral side. This was then held in position and pinned into place with 2 additional pins and a cross pin for stability. The medial and lateral collateral ligaments were protected and the cut was performed. With this completed, it was assessed and noted to be of appropriate dimensions. The guide and OrthoAlign was removed. A spacer block was inserted and the knee was brought into extension to ensure enough space was present. The femur was then sized as a size 6. The Orthoalign gap balancing device was then placed in extension. This was used to ensure that the ligaments were properly balanced with up to 2 to 3 mm laxity laterally compared medially. The extension gap was measured as 17mm. The knee was then brought into 90 degrees of flexion and the ligament roller skates assembler was once again placed. Under the same amount of force the flexion gap was measured. The attending specific jig was placed and the flexion gap was made to match the extension gap. The 4-in-1 cutting guide was the placed. An toby wing was used to confirm appropriate position of the anterior cut to avoid notching. This cutting guide was ensured to be flush on the cut surface and then pinned into place with headed pins. While protecting the soft tissues, quad tendon, and collateral ligaments, the anterior and posterior cuts were performed with a saw. The central two pins were removed and the posterior and anterior chamfers were cut next. The notch-cutting guide was placed. This was pinned to lateralize the femoral component as much as possible while keeping it flush on the cut surface. This was then pinned into position. A saw was used to make the notch cut. A rasp smoothed the cut surfaces. The medial and lateral menisci were removed. A trial femoral component was then inserted, impacted down to the cut surfaces, and the lug holes were drilled. A provisional trial tibial component was placed and the knee was brought through range of motion. There was noted to be excellent extension and flexion. There was no significant instability. The patella was tracking without thumbs. A size 7mm polyethylene component provided the best range of motion and stability with less than 2mm gapping with medial and lateral stress and full extension without significant hyperextension. The tibial cut surface was fully exposed. The tibia was then sized as a 6. The tibia had been previously marked during trialing to correspond to the center of the tibial component to help with rotation. The trial was aligned to this elliott, approximately rotated to the medial 1/3rd of the tibial tubercle. The trial was pinned into place. The tibia was prepared with a reamer and a keel punch and lug holes. The knee was then brought into extension and the patella was measured as 26mm. Using the patellar clamp and cut guide, this was resected to a flat surface with at least 13mm of thickness remaining. The size 35 patella fit the best. This was oriented and then clamped into position. The lugs were drilled. The trial components were removed. The final components were opened on the back table. The periosteal and capsular tissues, especially posteriorly, around the knee were then systematically injected with the remaining half of the periarticular cocktail consisting of 246mg of Ropivacaine, 0.5mg of Epinephrine, 0.08mg of Clonidine, and 30mg of Ketorolac, diluted to 100cc. On the back table, with the implants opened, the cement was mixed. One batch of high viscosity cement was prepared with vacuum assistance. After the cement was ready a small amount was placed on the cut surface of the patella and the patellar button was clamped into position and held. While the cement was hardening, the cementless knee components were placed. Starting with the tibial component, the tibia was subluxed anteriorly and the lug holes of the component were lined up. The tibia was then impacted with an impactor and mallet until the tibial component was in contact with the tibia. The final polyethylene component was inserted. Then, the femoral component was inserted. The lug holes were aligned and the component was impacted into position. The knee was irrigated with Surgiphor Betadine solution. This was allowed to sit in the knee for 3 minutes and then it was thoroughly irrigated out with saline. After the cement had finally cured, approximately 15min, the clamp was removed from the patella and the knee was taken through range of motion. The patella was tracking with a no-thumbs technique. The capsule was then reapproximated with a No. 1 Vicryl at multiple locations. The capsule was finally closed with a No. 2 Stratafix, barbed suture. The second dosing of 1g TXA was started. Deep tissues were then reapproximated with 0 Vicryl and 2-0 Vicryl. The skin was closed with a running 3-0 Monocryl in a subcuticular fashion. This was reinforced with skin glue. A Mepilex silver dressing was applied. A [id number] SIMBA wrap was applied to both legs, followed by a CryoCuff. Ro has a good prognosis. Physical therapy will start today and without restrictions, weight-bearing as tolerated. Aspirin 81mg BID will be used for DVT prophylaxis.
== END 2022-04-20 16:40 | disposition home or self-care (01) ==
PROVIDERS: PCP Nurse Practitioner Family; Visit Provider Student in an Organized Health Care Education/Training Program
PROC: 0SRC0JZ Replacement of Right Knee Joint with Synthetic Substitute, Open Approach (ICD-10-PCS; CPT 27447; principal; 2022-04-20 07:45)
DX: M17.0 Bilateral primary osteoarthritis of knee (principal); I10 Essential (primary) hypertension; E66.9 Obesity, unspecified; Z68.38 Body mass index [BMI] 38.0-38.9, adult
CPT/HCPCS: 27447; 20985; 87635; 97162; 97530; J0690; J1100; J2250; J2405; J3010

== ENCOUNTER 2022-05-05 09:44 | Outpatient (CLI) | payer BC, SELFPAY ==
--- NOTE | 2022-05-05 09:30 | DI.RAD_ITS ---
Exam(s) XR STANDING ALIGNMENT EXAM: XR STANDING ALIGNMENT CLINICAL HISTORY: s/p bilateral TKA. TECHNIQUE: 2D digital imaging was performed. COMPARISON: CR XR STANDING ALIGNMENT from 12/03/2020 FINDINGS: 3 views There are now bilateral knee prostheses which appear satisfactory position. No obvious loosening. Moderate-advanced degenerative changes in the hips again noted. Slightly further progressed bilatera lly. Ankles unremarkable. Bone density normal. No osseous lesions. IMPRESSION: As above. DATA REPOSITORY: RADIATION DOSE DELIVERED:
--- NOTE | 2022-05-05 09:30 | DI.RAD_ITS ---
Exam(s) XR KNEE LT 1V EXAM: XR KNEE LT 1V CLINICAL HISTORY: s/p bilateral TKA. TECHNIQUE: 2D digital imaging was performed. COMPARISON: CR XR KNEE RT 2V AP,LAT from 12/03/2020 FINDINGS: Single lateral view: Position alignment of the components of the prosthesis appears satisfactory. No fracture or loosenin g evident. IMPRESSION: Satisfactory appearance on this lateral view DATA REPOSITORY: RADIATION DOSE DELIVERED:
--- NOTE | 2022-05-05 09:30 | DI.RAD_ITS ---
Exam(s) XR KNEE RT 1V EXAM: XR KNEE RT 1V CLINICAL HISTORY: s/p bilateral TKA. TECHNIQUE: 2D digital imaging was performed. COMPARISON: CR XR KNEE LT 1V from 05/05/2022 FINDINGS: Single lateral view: Position alignment of the components of the prosthesis satisfactory. No fracture or loosening eviden t. IMPRESSION: DATA REPOSITORY: RADIATION DOSE DELIVERED:
== END 2022-05-05 09:45 | disposition home or self-care (01) ==
LOC: DIORS 09:45
PROVIDERS: PCP Nurse Practitioner Family; Referring Provider Nurse Practitioner Family; Visit Provider Physician Assistant
DX: Z96.653 Presence of artificial knee joint, bilateral (principal); M16.0 Bilateral primary osteoarthritis of hip
CPT/HCPCS: 73560; 77073

== ENCOUNTER 2022-07-11 03:04 | Outpatient (CLI) | payer BC, SELFPAY ==
[2022-07-11 14:27] LABS: HCT 42.1 % (36.0-46.0); HGB 13.6 g/dL (11.2-15.7); MCH 27.9 pg (27.0-33.0); MCHC 32.3 % (32.0-36.0); MCV 86 fL (80-95); MPV 9.7 fL (8.0-11.0); Platelet Count 334 10^3/uL (130-400); RBC 4.88 10^6/uL (3.93-5.22); RDW-SD 40.7 fL; WBC 9.47 10^3/uL (4.4-10.8)
[2022-07-11 15:16] LABS: Anion Gap 10.2 mmol/L (3-11); BUN 28 mg/dL (7-18); CO2 29.8 mmol/L (21.0-32.0); CREATININE 1.2 mg/dL (0.55-1.02); Calcium 9.8 mg/dL (8.5-10.1); Chloride 101 mmol/L (98-107); Estimated GFR 51.18 (mL/min/1.73m2); Glucose 97 mg/dL (74-106); Potassium 3.9 mmol/L (3.5-5.1); Sodium 141 mmol/L (136-145)
== END 2022-07-11 03:05 | disposition home or self-care (01) ==
LOC: LBO 03:04
PROVIDERS: PCP Nurse Practitioner Family; Visit Provider Student in an Organized Health Care Education/Training Program
DX: M25.551 Pain in right hip (principal); M25.552 Pain in left hip; M16.0 Bilateral primary osteoarthritis of hip; T84.82XA Fibrosis due to internal orthopedic prosthetic devices, implants and grafts, initial encounter; Z96.653 Presence of artificial knee joint, bilateral; Z01.818 Encounter for other preprocedural examination; Z01.812 Encounter for preprocedural laboratory examination
CPT/HCPCS: 36415; 80048; 85027; 86850; 86900; 86901; 83735

== ENCOUNTER 2022-07-11 13:24 | Outpatient (CLI) | payer BC, SELFPAY ==
--- NOTE | 2022-07-11 13:00 | DI.RAD_ITS ---
Exam(s) XR PELVIS AP EXAM: XR PELVIS AP CLINICAL HISTORY: pre op BILAT ROCAEL. TECHNIQUE: 2D digital imaging was performed. COMPARISON: No exams were available for comparison FINDINGS: There are severe degenerative changes of the left hip. There is prominent periarticular spurring and subchondral cyst formation. Severe degenerative changes are also seen in the right hip to a lesser extent. IMPRESSION: Severe degenerative changes of both hips, left greater than right. DATA REPOSITORY: RADIATION DOSE DELIVERED:
== END 2022-07-11 13:25 | disposition home or self-care (01) ==
LOC: DIORS 13:25
PROVIDERS: PCP Nurse Practitioner Family; Referring Provider Nurse Practitioner Family; Visit Provider Physician Assistant
DX: M16.0 Bilateral primary osteoarthritis of hip (principal)
CPT/HCPCS: 72170

== ENCOUNTER 2022-07-19 06:05 | Day surgery (SDC) | payer BC, SELFPAY ==
[2022-07-19] VITALS (11 sets, daily range): BP systolic 56–137; BP diastolic 32–91; PULSE 55–80; RESP 13–18; TEMP 35.9–36.4; O2SAT 95–99; BMI 39.0
[2022-07-19] MEDS: Celecoxib 200 MG CAP 400 MG PO (06:30)
[2022-07-19] MEDS: Acetaminophen 500 MG TAB 1000 MG PO (06:33)
[2022-07-19] MEDS: Lactated Ringers 1,000 ML 80 ML IV (06:45)
--- NOTE | 2022-07-19 07:15 | DI.RAD_ITS ---
Exam(s) XR HIP RT IN OR EXAM: XR HIP RT IN OR CLINICAL HISTORY: total hip. TECHNIQUE: 2D and realtime digital imaging was performed. COMPARISON: No exams were available for comparison FINDINGS: Fluoroscopy was brought in the OR for Dr. Pearl. Hard copy image shows placement of a right hip p rosthesis. The alignment appears satisfactory. Please see procedure note for details. Fluoro time: 31.4seconds RADIATION DOSE DELIVERED: brandy Arevalo=5.58 mGy
--- NOTE | 2022-07-19 07:15 | DI.RAD_ITS ---
Exam(s) XR HIP LT IN OR EXAM: XR HIP LT IN OR CLINICAL HISTORY: total hip. TECHNIQUE: 2D and realtime digital imaging was performed. COMPARISON: No exams were available for comparison FINDINGS: Fluoroscopy was provided for Dr. Pearl in the OR. Hard copy images show placement of a left hip p rosthesis which show satisfactory alignment. Please see procedure note for details. Fluoro time: 29.6seconds RADIATION DOSE DELIVERED: brandy Arevalo=7.31 mGy
--- NOTE | 2022-07-19 07:20 | DSE_ITS ---
Date of service: 07/19/22 Time of Service: 13:02 DS: Diagnosis Discharge Diagnosis (1) Primary osteoarthritis of left hip: Status: Acute (2) Primary osteoarthritis of right hip: Status: Acute Discharge Plan Disposition Patient Disposition: Home Condition: Good Discharge Details Reason For Visit: Bilateral hip DJD Attending Provider: Jesus Pearl Primary Care Provider: Niya Urbina Home Meds and New Rx's Prescriptions: New acetaminophen 500 mg tablet 1,000 mg PO Q8H PRN Qty: 90 0RF Rx Instructions: Take two tablets up to every 8 hours as needed for pain aspirin 81 mg tablet,delayed release (DR/EC) 81 mg PO BID 30 Days Qty: 60 0RF celecoxib [Celebrex] 200 mg capsule 200 mg PO BID PRNQty: 60 0RF Rx Instructions: Take one tablet twice daily for pain and inflammation docusate sodium [Colace] 100 mg capsule 100 mg PO BID Qty: 30 0RF dexamethasone 4 mg tablet 4 mg PO DAILY Qty: 2 0RF Rx Instructions: Take one tablet once daily for two days oxycodone 5 mg tablet 5 mg PO Q6H PRN (Reason: severe post-operative pain) Qty: 12 0RF Rx Instructions: Take one tablet up to every 6 hours as needed for severe pain cyclobenzaprine 5 mg tablet 5 mg PO QHS PRNQty: 14 0RF Continued hydrochlorothiazide 25 mg tablet 25 mg PO DAILY omeprazole 20 mg capsule,delayed release(DR/EC) 20 mg PO DAILY Qty: 60 1RF Rx Instructions: Take one tablet daily cetirizine [Zyrtec] 10 mg tablet 10 mg PO DAILY PRN multivitamin Tablet 1 tab PO DAILY polyethylene glycol 3350 [Miralax] 17 gram Powder In Packet 17 g PO DAILY PRN Discontinued gabapentin 300 mg capsule 300 mg PO DAILY acetaminophen 500 mg tablet 1,000 mg PO Q6H PRN cyclobenzaprine 5 mg tablet 5 mg PO HS PRN (Reason: muscle spasm) Qty: 30 0RF Rx Instructions: Take one tablet nightly for muscle cramping celecoxib 200 mg capsule 200 mg PO BID PRN (Reason: pain) Qty: 60 1RF Discharge Instructions Additional Instructions: Total Hip Discharge Instructions Activity: The most important activity is to walk. You should try to take short walks a few times a day. You have no restrictions on movement or positioning, but do not try to force what you do. You will find some stiffness and weakness with hip flexion (lifting your knee). Do not try to strengthen this too early, continue to practice walking and stairs and this will come. - Outpatient physical therapy can be helpful to help return you to a normal gait and improve your flexibility and strength. This can start around 2 weeks. For some patients, it?s not necessary. Usually this is determined at the time of discharge or at the first post-operative visit. - You should wear the NATAN hose on both legs for 2 weeks. Dressing: Keep the surgical dressing in place for at least one week. After the first week it may be removed and replace with light gauze and tape or nothing. It may get wet after 3 days but avoid soaking the dressing. If it gets wet, just lightly pat dry. It is important to always keep some gauze between skin folds, especially when you are sitting. Spend some time with the wound exposed when you are lying flat as the incision does wrinkle onto itself. Medications: - You should take Tylenol and an anti-inflammatory Celebrex as your primary pain control medications. If the Celebrex is too expensive or not covered, please call the office for another alternative (Advil/Ibuprofen or Naproxen/Aleve). - You have been prescribed a stronger pain medication Oxycodone for breakthrough pain, take as needed as prescribed. - You take a stomach acid reduction agent Omeprazole - continue with this medication to help reduce stomach acid and reflux. - You have also been prescribed Decadron to help with post-operative nausea and pain. You will take this for two days starting tomorrow. - You will be taking Aspirin 81mg twice a day for DVT prevention unless instructed otherwise. - For your muscle cramping a refill of Flexeril was also prescribed. - If you have constipation you should take Colace (which has been prescribed) or Miralax (which is available [id number]). It takes most people 3-4 days to have a bowel movement. Follow-up: 2 weeks If you have any acute concerns or questions, please do not hesitate to contact the office at [phone]. You may contact Dr. Pearl with any questions after hours through the hospital at [phone] or on his cell phone at [phone]. Stand Alone Forms: Anesthesia Discharge InstKareen, Bandar Charles ([facility]) Referrals: Jesus Pearl MD [ [facility] STAFF PHYSICIAN] - Equipment/Supplies: Walker Activity:: Activity as Tolerated Remove Dressings/Wound Care:: Do Not Remove Shower/Bathe:: Cover Diet:: As Tolerated Discharge Orders Discharge Orders: Discharge Order (Routine); Ordered 07/19/22 Ordered By: Jesus Pearl DS: Summary Time Spent with Patient providing and/or coordinating discharge services: Less than 30 minutes Status at Discharge Functional status at discharge: uses cane/walker Overall status at discharge: patient is progressing back to baseline Mental Status: mental status grossly normal Speech and Movement: speech and movement normal Mood: congruent mood Affect: normal affect Exam Psych Mental Status: mental status grossly normal Speech and Movement: speech and movement normal Mood: congruent mood Affect: normal affect DS: Data Vitals/I&O Vitals and I&O: Vital Signs Temperature 97.0 F L 07/19/22 06:22 Pulse 80 07/19/22 06:22 Pulse Rhythm Regular 07/19/22 06:22 Respiratory Rate 18 07/19/22 06:22 Respiratory Depth Normal 07/19/22 06:22 Blood Pressure 137/91 H 07/19/22 06:22 Pulse Oximetry 96 07/19/22 06:22 Oxygen Delivery Method Room Air 07/19/22 06:22 Oxygen Flow Rate 0 07/19/22 06:22 Pain Level 1 07/19/22 06:22 Intake & Output 07/18/22 07/18/22 07/19/22 11:59 23:59 11:59 Weight 242 lb 1.081 oz PFSH All Active Problems Primary osteoarthritis of left hip (Acute) Primary osteoarthritis of right hip (Acute) Colon polyp, hyperplastic (Acute ~12/2020) Epigastric pain (Acute) Diverticular disease (Acute) BMI 40.0-44.9, adult (Acute) Hypertension (Chronic) Status post total bilateral knee replacement (Acute 04/20/22) Arthrofibrosis of total knee arthroplasty (Acute) Medical History Anxiety Depression Family history of abdominal aortic aneurysm (AAA) Obesity Screening for colon cancer Tubular adenoma (~12/2020) Surgical History History of colonoscopy (~12/2020) History of foot surgery Bilateral haglauds deformity History of total bilateral knee replacement Hx of tubal ligation Social History Smoking/Tobacco Use Status: Never Smoking risk assessment performed?: Yes Alcohol Intake: current Alcohol Intake frequency: a few times a month Alcohol type: beer, wine and hard liquor Drug use: Occasionally Substance use type: marijuana Details: Last marijuana use 07/14 Current gender identity: female Do you feel safe at home: Yes Do you feel safe in your relationship?: Yes Time Spent with Patient Time Spent with Patient: <45 minutes Time was spent: preparing to see the patient(eg.review tests), ordering medications,tests, procedures and counseling the patient
--- NOTE | 2022-07-19 07:35 | W.ANESPRE ---
General Info Date of Service Date Performed: 07/19/22 Height: 5 ft 6 in Weight: 109.8 kg Body Mass Index (BMI): 39.0 Surgical Procedure: Operation Date: 07/19/22 08:00 Proposed Procedure Side Surgeon p Hip Total Hip Anterior Bilateral, Actis (size 6/7 STD) Bilateral Jesus Pearl MD Meds Allergies and Home Medications Allergies Allergy/AdvReac Type Severity Reaction Status Date / Time No Known Allergies Allergy Verified 07/19/22 06:18 Home Medication Medication Instructions Recorded cetirizine 10 mg tablet (Zyrtec) 10 mg PO DAILY PRN 08/21/20 multivitamin 1 tab PO DAILY 08/21/20 hydrochlorothiazide 25 mg tablet 25 mg PO DAILY 11/18/21 polyethylene glycol 3350 17 gram 17 g PO DAILY PRN 04/20/22 oral powder packet (Miralax) omeprazole 20 mg capsule,delayed 20 mg PO DAILY GERD #60 caps 07/12/22 release acetaminophen 500 mg tablet 1,000 mg PO Q8H PRN pain #90 tabs 07/19/22 aspirin 81 mg tablet,delayed 81 mg PO BID 30 days #60 tabs 07/19/22 release celecoxib 200 mg capsule (Celebrex) 200 mg PO BID PRN #60 caps 07/19/22 cyclobenzaprine 5 mg tablet 5 mg PO QHS PRN #14 tabs 07/19/22 dexamethasone 4 mg tablet 4 mg PO DAILY #2 tabs 07/19/22 docusate sodium 100 mg capsule 100 mg PO BID #30 caps 07/19/22 (Colace) oxycodone 5 mg tablet 5 mg PO Q6H PRN severe 07/19/22 post-operative pain #12 tabs Current Visit Medications: Current Medications Generic Name Dose Route Start Last Admin Trade Name Freq PRN Reason Stop Dose Admin Acetaminophen 1,000 mg 07/19/22 06:00 07/19/22 06:33 Acetaminophen 500 Mg Tab PO 1,000 mg PREOP DEANN Administration Acetaminophen 1,000 mg 07/19/22 08:30 Acetaminophen 500 Mg Tab PO TID DEANN Aspirin 81 mg 07/19/22 08:30 Aspirin E.C. 81 Mg Tabec PO BID DEANN Celecoxib 400 mg 07/19/22 06:00 07/19/22 06:30 Celecoxib 200 Mg Cap PO 400 mg PREOP DEANN Administration Celecoxib 200 mg 07/19/22 08:30 Celecoxib 200 Mg Cap PO BID DEANN Cyclobenzaprine HCl 5 mg 07/19/22 22:00 Cyclobenzaprine 10 Mg Tab PO HS PENDING SALE TO [facility] Dexamethasone 4 mg 07/19/22 08:30 Dexamethasone 4 Mg Tab PO 07/20/22 08:31 DAILY DEANN Docusate Sodium 100 mg 07/19/22 07:16 Docusate Sodium 100 Mg Cap PO BID PRN PRN Constipation Hydromorphone HCl 0.5 mg 07/19/22 07:16 Hydromorphone 2 Mg/Ml Syr IVP Q2H PRN PRN Tranexamic Acid 1,000 mg/ 60 mls @ 360 mls/hr 07/19/22 06:00 Sodium Chloride IV 07/19/22 18:00 PREOP PENDING SALE TO [facility] Tranexamic Acid 1,000 mg/ 60 mls @ 360 mls/hr 07/19/22 06:00 Sodium Chloride IV 07/19/22 18:00 DIRECTED PENDING SALE TO [facility] Ringer's Solution 1,000 mls @ 80 mls/hr 07/19/22 06:00 07/19/22 06:45 IV 08/17/22 23:59 80 mls/hr INFUSION PENDING SALE TO [facility] Administration Cefazolin Sodium/Dextrose 2 gm in 50 mls @ 100 mls/hr 07/19/22 06:00 Ancef Duplex IVPB 07/19/22 16:00 PREOP DEANN Cefazolin Sodium/Dextrose 1 gm in 50 mls @ 100 mls/hr 07/19/22 08:00 Ancef Duplex IVPB 07/20/22 00:29 Q8H PENDING SALE TO [facility] IV Miscellaneous Supplies 1 each 07/19/22 06:00 Iv Access IV 08/17/22 23:59 DIRECTED PENDING SALE TO [facility] Ondansetron HCl 4 mg 07/19/22 07:16 Ondansetron 4 Mg/2 Ml Vial IVP Q6H PRN PRN Nausea Oxycodone HCl 0 mg 07/19/22 07:16 Oxycodone 5 Mg Tab PO Q3H PRN PRN Pain Pantoprazole Sodium 40 mg 07/19/22 07:30 Pantoprazole 40 Mg Tabcr PO DAILY@0730 DEANN Polyethylene Glycol 17 gm 07/19/22 07:16 Polyethylene Glycol 3350 17 Gm Packet PO BID PRN PRN Constipation Sodium Chloride 0 ml 07/19/22 06:00 Normal Saline Flush 10 Ml Syr IV 08/17/22 23:59 PRN PRN Sodium Chloride 0 ml 07/19/22 06:00 Normal Saline 10 Ml Vial IJ 08/17/22 23:59 DIRECTED PRN Sterile Water 0 ml 07/19/22 06:00 Water,Injection,Sterile 10 Ml Vial IJ 08/17/22 23:59 DIRECTED PRN PFSH Active Problems Active Problems: Problem Status Onset Code Primary osteoarthritis of left hip M16.12 Primary osteoarthritis of right hip M16.11 Colon polyp, hyperplastic ~12/2020 K63.5 Epigastric pain R10.13 Diverticular disease K57.90 BMI 40.0-44.9, adult Z68.41 Hypertension I10 Status post total bilateral knee replacement 04/20/22 Z96.653 Arthrofibrosis of total knee arthroplasty T84.82XA Medical History Medical History Anxiety Depression Family history of abdominal aortic aneurysm (AAA) Obesity Screening for colon cancer Tubular adenoma (~12/2020) Surgical History Surgical History History of colonoscopy (~12/2020) History of foot surgery Bilateral haglauds deformity History of total bilateral knee replacement Hx of tubal ligation Tobacco Smoking/Tobacco Use Status: Never Alcohol Alcohol Intake: current Alcohol intake frequency: a few times a month Alcohol type: beer, wine and hard liquor Substance Use Substance use: Occasionally Substance use type: marijuana Details: Last marijuana use 07/14 Vital Signs and Lab Results Vital Signs Most Recent Vital Signs in EMR: Most Recent Vital Signs Temp Pulse Resp BP Pulse Ox 36.1 C L 80 18 137/91 H 96 07/19/22 06:22 07/19/22 06:22 07/19/22 06:22 07/19/22 06:22 07/19/22 06:22 Lab Results Blood Type / Crossmatch: Patient ABO/Rh A Negative 07/11/22 Antibody Screen NEGATIVE 07/11/22 Complete Blood Count: White Blood Count 9.47 10^3/uL (4.4-10.8) 07/11/22 14:18 Red Blood Count 4.88 10^6/uL (3.93-5.22) 07/11/22 14:18 Hemoglobin 13.6 g/dL (11.2-15.7) 07/11/22 14:18 Hematocrit 42.1 % (36.0-46.0) 07/11/22 14:18 Platelet Count 334 10^3/uL (130-400) 07/11/22 14:18 Complete Metabolic Panel: Sodium 141 mmol/L (136-145) 07/11/22 14:18 Potassium 3.9 mmol/L (3.5-5.1) 07/11/22 14:18 Chloride 101 mmol/L (98-107) 07/11/22 14:18 Carbon Dioxide 29.8 mmol/L (21.0-32.0) 07/11/22 14:18 BUN 28 mg/dL (7-18) H 07/11/22 14:18 Creatinine 1.2 mg/dL (0.55-1.02) H 07/11/22 14:18 Est GFR (CKD-EPI 2020) 51.18 (mL/min/1.73m2) 07/11/22 14:18 Magnesium 2.0 mg/dL (1.8-2.4) 07/11/22 14:18 Calcium 9.8 mg/dL (8.5-10.1) 07/11/22 14:18 Glucose 97 mg/dL (74-106) 07/11/22 14:18 Liver Function Panel: No Data to Display Coagulation Panel: No Data to Display Cardiac Panel: No Data to Display Arterial Blood Gas: No Data to Display Venous Blood Gas: No Data to Display Pancreas Panel: No Data to Display Thyroid Panel: No Data to Display Infectious Disease: No Data to Display Blood Cultures: No Data to Display Toxicology Panel: No Data to Display Anesthesia Assessment and Plan Anesthesia History Personal History: No History of Anesthesia Complications Family History: No Family History of Anesthesia Complications Exercise Tolerance Exercise Tolerance: Metabolic Equivalents>4 Pertinent Negatives Pertinent Negatives: No Symptoms of GERD, No Major Cardiovascular Symptoms or Complaints, No Major Pulmonary Symptoms or Complaints and No History of CVA/TIA Cardiac & Pulmonary Exam Cardiac Exam: Normal S1/S2 Heart Sounds Pulmonary Exam: Clear Bilateral Breath Sounds Implantable Cardiac Device Does patient have a Pacemaker or an ICD?: No Airway Exam Known Difficult Airway: No Mallampati Class: 1 Mouth Opening: Normal (> 3cm) Thyromental Distance: Greater than 3 cm Neck Range of Motion: Full ROM Neck Circumference: Normal Teeth Condition: Normal Dentition ASA Classification ASA Score: ASA 2 Emergency Case?: No NPO Status NPO Status: NPO Clears >2 hours, Solids >8 hours Anesthesia Plan Resuscitation Status: Full Code Anesthesia Technique: Spinal Anesthesia Airway Planned: Natural Airway Monitors Used: Standard Monitors Preoperative Comments:: Long setup on spinal last time with quad movement, transitioned to a GETA. Patient agreed to try spinal again. Plan is 0.5% instead of 0.75% heavy
[2022-07-19] MEDS: ceFAZolin 2 GM/50 ML BAG IVPB (07:48)
[2022-07-19] MEDS: Normal Saline 10 ML VIAL IJ (11:01)
[2022-07-19] MEDS: HYDROmorphone 2 MG/ML SYR IVP ×2 (11:01→11:30)
--- NOTE | 2022-07-19 12:05 | ROE_ITS ---
Date of service: 07/19/22 Time of Service: 10:30 Operative Note Operative Note DATE OF PROCEDURE: 12/04/19 PRE-OP DIAGNOSIS: Bilateral Hip Osteoarthritis POST-OP DIAGNOSIS: same PROCEDURE: Bilateral Anterior Total Hip Arthroplasty with Intraoperative Navigation SURGEON: Jesus Pearl TELEVISION SCRIPT WRITER: Rozina Simpson ANESTHESIA TYPE: Spinal Refer to Anesthesia Record ESTIMATED BLOOD LOSS: 600 PATHOLOGY: none sent COMPLICATIONS: None Patient was transported to: PACU Patient's condition: stable Implants: RIGHT: 1. Depuy [place] Acetabular Component, 52mm 2. Depuy Acetabular Liner, [id number] 3. Depuy Actis Standard Femoral Stem, Size 6 4. Depuy Altrx Ceramic Femoral Head, Size 36+1.5mm LEFT: 1. Depuy [place] Acetabular Component, 52mm 2. Depuy Acetabular Liner, [id number] 3. Depuy Actis Standard Femoral Stem, Size 6 4. Depuy Altrx Ceramic Femoral Head, Size 36+1.5mm Indications: I have seen Ro in clinic for symptoms of hip arthritis, confirmed with radiographic findings. She has exhausted nonoperative methods and was having s ignificant limitations in daily function and desired better function and less pain. I discussed the technical details of a hip replacement. I explained the risks of the procedure to include, but not limited to, bleeding, infection, pain, stiffness, fracture, damage to nerves and vessels, damage to muscles and tendons, loosening, instability, leg length inequality, need for repeat procedure, blood clot and cardiopulmonary demise. Despite these risks, Ro elected to proceed. Findings: There was significant signs of arthritis throughout both hips. Large osteophytes about the femoral neck and acetabulum were present bilaterally along with complete loss of cartilage. Procedure Description: Ro was greeted in the preoperative holding area where the correct side was identified and marked. The consent was reviewed with the patient and signed. The history and physical was updated. All questions were answered. She was taken back to the operating room. A spinal anesthestic was then administered. The patient was placed into the supine position on the HANA table. Both feet were wrapped with [place]br[place] cotton wrap along with Coban. LEFT Side The feet were placed in specialized boots for the HANA table, well seated within the boot and secured. SCDs were applied. The patient was then slid down onto a peroneal post. A preoperative AP hip was obtained to serve as a reference for determining leg lengths. Prophylactic antibiotics in the form of Cefazolin were administered. 1g of Tranxemic Acid was given intravenously within 30 minutes of incision. The left leg was then prepped with Chloraprep and draped in a standard fashion. A second prep with Chloraprep was performed prior to placement of a shower-curtain type drape with Iodine impregnated skin protection. A timeout to confirm correct identity, side and site, procedure, allergies, anesthesia, and medical concerns was performed. An obliquely oriented incision was made starting lateral to the ASIS and running distal over the Tensor Fascia Nicole (TFL) muscle belly toward the fibular head, approximately 10cm. The skin and soft tissue was dissected sharply, through Cassandra?s fascia, and to the fascia of the TFL. With the fascia and superior border of the IT band identified, the fascia was incised with a new knife just above any perforators from the IT band. The TFL muscle belly was bluntly dissected away from the fascia and moved laterally. The fat between TFL and rectus was identified to ensure the dissection was not within the TFL. Blunt dissection created space between abductors and the capsule and retractor was placed over the lateral femoral neck. The fibers of the rectus femoris tendon were identified and these were freed from the anterior capsule. A second cobra retractor was placed around the medial femoral neck. The TFL was further retracted laterally to show the deep fascia. Careful dissection through this layer identified three main crossing vessels of the lateral femoral circumflex. These were cauterized in multiple locations and then cut without any noticeable bleeding. The TFL was further released bluntly from the deep fascia to expose anterior hip capsule and fat The Chalino orthopaedic retractor was then placed beneath the TFL and against sartorius and medial soft tissues to protect and retract the soft tissues. A T-capsulotomy was then performed starting at the superior lateral acetabulum and moving distally to the intertrochanteric ridge. These capsular flaps were tagged with a No. 1 Ethibond and elevated from within. The capsular flaps were released to the shoulder of the lateral neck and to the lesser trochanter to give excellent visualization of the proximal femur. A neck osteotomy was performed using an oscillating saw based on preoperative templates. This cut started in the shoulder and of the lateral neck and exited medially. The saw was at all times directed medially to avoid injury to the greater trochanter. Gentle traction was applied to the leg and the osteotomy opened. The femoral head was removed with a corkscrew, making sure to protect the TFL on its exit. This was measured on the back table to determing the starting reamer size. Portions of the rectus obscuring visualization were minimally elevated off the superior acetabulum. An anterior retractor was placed over the anterior wall between capsule and labrum and attached to the Gripper retraction system. A posterior retractor was placed similarly. This provided excellent visualization. The contents of the cotyloid fossa were removed with electrocautery and the labrum was removed with a knife. There was a notable floor osteophyte. There was significant chondromalacia of the superior acetabulum. Acetabular reaming began with a 48mm reamer. This first reaming was directed anterior to posterior and medial to get down to the true floor. This was inspected and reamed until the true floor was reached. The anterior retractor was then released and entry and exit was provided by traction on the capsular flaps. I then reamed sequentially up to a 52mm reamer where good fit was obtained. The larger reamers were oriented based on anatomical reference of the anterior and lateral rodriguez to ensure proper abduction and anteversion. Positioning and size was confirmed with the fluoroscopy. A 52mm Depuy [place] acetabular component was selected. The acetabulum was reamed around the periphery with the selected acetabular size to prevent a rim fit. The deep tissues were irrigated. The acetabular component was then impacted in a position of about 40-45 degrees of abduction and 15-20 degrees of anteversion, using the patient?s anatomy as the ultimate landmark. Fluoroscopy was used to confirm this. There was excellent corrugated fastener driver of the acetabular component and the inserting handle was removed. The acetabular liner, Depuy [id number] polyethylene liner, was inserted and lined up with the tines of the acetabular component. There was no soft tissue interposition. The liner was then impacted into position and confirmed to be well-seated. A portion of the barrera-articular cocktail was then injected around the acetabulum into the capsule and periosteum. This cocktail consisted of 123mg of Ropivacaine, 0.25mg of Epinephrine, 0.04mg of Clonidine, and 15mg of Ketorolac, diluted to 50cc. Traction was released from the femur. The leg was rotated to 120 degrees. Any remaining medial capsule was released until the lesser trochanter was easily palpable. A Krueger retractor was placed medially. The lateral capsule was further released into the shoulder to allow access to the greater trochanter. A Krueger retractor was placed over the greater trochanter which allowed the trochanter to flip in front of the capsule for excellent exposure. The leg was brought down into maximal extension and 20 degrees of adduction while ensuring there was no impingement on the acetabulum. Any remnant capsule within the trochanter was released. Piriformis and obturator externis were identified and protected. There was excellent access to the proximal femur. The lateral neck remnant was removed with a rongeur. A blunt canal probe was used to identify the canal and trajectory for later broaching. A box osteotome initiated the broach course. A small curved rasp and a curved curette were used to work laterally. Broaching then began with a size 0 Actis broach. This was inserted manually around the trochanter and into the canal before mallet blows. The broach was seated to the neck cut level based on the neck cut and the preoperative template. Sequential broaching was continued with the [employer] pneumatic broaching device until a tight fit was obtained with good rotational control of the femur. A trial standard neck was inserted along with a +1.5 trial head. The leg was brought out of extension and adduction and then reduced with traction and internal rotation. The leg was stable anteriorly in a position of 30 degrees of extension and 90 degrees of external rotation. Fluoroscopy was used to ensure there was no fracture and the stem was seated well. Deep tissues were then irrigated with surgery for Betadine solution. This was allowed to sit for 3 minutes and then irrigated with saline. Leg lengths were checked with an AP pelvis and pelvic reference points. [employer] navigation system was used to confirm appropriate positioning and leg length and offset. Once content with the desired offset and leg lengths, the leg was brought back into extension, external rotation and adduction. The periosteum and surrounding tissue was injected with remaining portion of the barrera-articular cocktail. The proximal femur was irrigated as well as the deep tissues. The [employer] Actis standard stem, size 6, was then manually inserted into the proximal femur making sure to control rotation. It was then malleted into position with light blows, giving breaks to allow bone expansion and decrease risk of fracture. The selected Depuy Altrx Ceramic Head, size 36+1.5mm, was then placed onto the clean and dry trunnion and secured with impaction onto the tapered fit. The leg was brought back out of extension and adduction and reduced with traction and internal rotation. Stability was confirmed with no shuck at 90 degrees of external rotation and 30 degrees of extension. No impingement through range of motion arc. Final x-ray images were obtained with fluoroscopy to confirm adequate positioning and no intraoperative fracture. The capsule was then reapproximated with the previously placed Ethibond sutures. The TFL fascia was finally closed with a No. 2 Stratafix, barbed suture. Deep tissues were then reapproximated with 0 Vicryl and a running 2-0 Vicryl. The skin was closed with a running 4-0 Monocryl in a subcuticular fashion. This was reinforced with skin glue. A Mepilex silver dressing was applied. RIGHT Side Keeping the back table sterile, the drapes were removed, light handles changed, and fluoroscopy switched rooms sides. Once again, a AP hip was obtained to serve as a reference for determining leg lengths. The right leg was then prepped with Chloraprep and draped in a standard fashion. A second prep with Chloraprep was performed prior to placement of a shower-curtain type drape with Iodine impregnated skin protection. The second dose of TXA 1g was administered intravenously. A timeout was once again performed to ensure that there were no issues to proceed. An obliquely oriented incision was made starting lateral to the ASIS and running distal over the Tensor Fascia Nicole (TFL) muscle belly toward the fibular head, approximately 10cm. The skin and soft tissue was dissected sharply, through Cassandra?s fascia, and to the fascia of the TFL. With the fascia and superior border of the IT band identified, the fascia was incised with a new knife just above any perforators from the IT band. The TFL muscle belly was bluntly dissected away from the fascia and moved laterally. The fat between TFL and rectus was identified to ensure the dissection was not within the TFL. Blunt dissection created space between abductors and the capsule and retractor was placed over the lateral femoral neck. The fibers of the rectus femoris tendon were identified and these were freed from the anterior capsule. A second cobra retractor was placed around the medial femoral neck. The TFL was further retracted laterally to show the deep fascia. Careful dissection through this layer identified three main crossing vessels of the lateral femoral circumflex. These were cauterized in multiple locations and then cut without any noticeable bleeding. The TFL was further released bluntly from the deep fascia to expose anterior hip capsule and fat The Chalino orthopaedic retractor was then placed beneath the TFL and against sartorius and medial soft tissues to protect and retract the soft tissues. A T-capsulotomy was then performed starting at the superior lateral acetabulum and moving distally to the intertrochanteric ridge. These capsular flaps were tagged with a No. 1 Ethibond and elevated from within. The capsular flaps were released to the shoulder of the lateral neck and to the lesser trochanter to give excellent visualization of the proximal femur. A neck osteotomy was performed using an oscillating saw based on preoperative templates. This cut started in the shoulder and of the lateral neck and exited medially. The saw was at all times directed medially to avoid injury to the greater trochanter. Gentle traction was applied to the leg and the osteotomy opened. The femoral head was removed with a corkscrew, making sure to protect the TFL on its exit. This was measured on the back table to determing the starting reamer size. Portions of the rectus obscuring visualization were minimally elevated off the superior acetabulum. An anterior retractor was placed over the anterior wall between capsule and labrum and attached to the Gripper retraction system. A posterior retractor was placed similarly. This provided excellent visualization. The contents of the cotyloid fossa were removed with electrocautery and the labrum was removed with a knife. There was a notable floor osteophyte. There was significant chondromalacia of the superior acetabulum. Acetabular reaming began with a 48mm reamer. This first reaming was directed anterior to posterior and medial to get down to the true floor. This was inspected and reamed until the true floor was reached. The anterior retractor was then released and entry and exit was provided by traction on the capsular flaps. I then reamed sequentially up to a 52mm reamer where good fit was obtained. The larger reamers were oriented based on anatomical reference of the anterior and lateral rodriguez to ensure proper abduction and anteversion. Positioning and size was confirmed with the fluoroscopy. A 52mm Depuy [place] acetabular component was selected. The acetabulum was reamed around the periphery with the selected acetabular size to prevent a rim fit. The deep tissues were irrigated. The acetabular component was then impacted in a position of about 40-45 degrees of abduction and 15-20 degrees of anteversion, using the patient?s anatomy as the ultimate landmark. Fluoroscopy was used to confirm this. There was excellent corrugated fastener driver of the acetabular component and the inserting handle was removed. The acetabular liner, Depuy [id number] polyethylene liner, was inserted and lined up with the tines of the acetabular component. There was no soft tissue interposition. The liner was then impacted into position and confirmed to be well-seated. A portion of the barrera-articular cocktail was then injected around the acetabulum into the capsule and periosteum. This cocktail consisted of 123mg of Ropivacaine, 0.25mg of Epinephrine, 0.04mg of Clonidine, and 15mg of Ketorolac, diluted to 50cc. Traction was released from the femur. The leg was rotated to 120 degrees. Any remaining medial capsule was released until the lesser trochanter was easily palpable. A Krueger retractor was placed medially. The lateral capsule was further released into the shoulder to allow access to the greater trochanter. A Krueger retractor was placed over the greater trochanter which allowed the trochanter to flip in front of the capsule for excellent exposure. The leg was brought down into maximal extension and 20 degrees of adduction while ensuring there was no impingement on the acetabulum. Any remnant capsule within the trochanter was released. Piriformis and obturator externis were identified and protected. There was excellent access to the proximal femur. The lateral neck remnant was removed with a rongeur. A blunt canal probe was used to identify the canal and trajectory for later broaching. A box osteotome initiated the broach course. A small curved rasp and a curved curette were used to work laterally. Broaching then began with a size 0 Actis broach. This was inserted manually around the trochanter and into the canal before mallet blows. The broach was seated to a few millimeters below the cut level based on the neck cut and the preoperative template. Sequential broaching was continued with the [employer] pneumatic broaching device until a tight fit was obtained with good rotational control of the femur. A trial standard neck was inserted along with a +1.5 trial head. The leg was brought out of extension and adduction and then reduced with traction and internal rotation. The leg was stable anteriorly in a position of 30 degrees of extension and 90 degrees of external rotation. Fluoroscopy was used to ensure there was no fracture and the stem was seated well. The wound was then irrigated with Surgiphor betadine solution, allowed to sit for 3 minutes, and then irrigated with saline. Leg lengths were checked with an AP pelvis and pelvic reference points. [employer] navigation system was used to confirm appropriate positioning and leg length and offset. Once content with the desired offset and leg lengths, the leg was brought back into extension, external rotation and adduction. The periosteum and surrounding tissue was injected with remaining portion of the barrera-articular cocktail. The proximal femur was irrigated as well as the deep tissues. The Depuy Actis standard stem, size 6, was then manually inserted into the proximal femur making sure to control rotation. It was then malleted into position with light blows, giving breaks to allow bone expansion and decrease risk of fracture. The selected Depuy Altrx Ceramic Head, size 36+1.5mm, was then placed onto the clean and dry trunnion and secured with impaction onto the tapered fit. The leg was brought back out of extension and adduction and reduced with traction and internal rotation. Stability was confirmed with no shuck at 90 degrees of external rotation and 30 degrees of extension. No impingement through range of motion arc. Final x-ray images were obtained with fluoroscopy to confirm adequate positioning and no intraoperative fracture. The capsule was then reapproximated with the previously placed Ethibond sutures. The TFL fascia was finally closed with a No. 2 Stratafix, barbed suture. Deep tissues were then reapproximated with 0 Vicryl and a running 2-0 Vicryl. The skin was closed with a running 4-0 Monocryl in a subcuticular fashion. This was reinforced with skin glue. A Mepilex silver dressing was applied. At the end of the case, all counts were correct. Ro was transferred to the hospital bed without difficulty and suffering no apparent complication. Ro has a good prognosis. Physical therapy will start today and without restrictions, weight-bearing as tolerated. Aspirin 81mg BID will be used for DVT prophylaxis.
[2022-07-19] MEDS: oxyCODONE 5 MG TAB PO (12:24)
--- NOTE | 2022-07-19 13:58 | PT.INIE ---
Date of service: 07/19/22 Time of Service: 12:57 PT Notes Visit Reasons: Bilateral hip DJD Physical Therapy Day Surgery Initial Evaluation Date: 07/19/2022 Referring Doctor:? Jesus Pearl MD PT Orders: PT CONSULT: S/P Ortho surgery;? S/P bilateral TKA Precautions: WBAT on B LE with AD. 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 She is S/P bilateral knee arthroplasties on 04/20/2023. PMHX: Medical History? Anxiety Depression Family history of abdominal aortic aneurysm (AAA) Obesity Screening for colon cancer Tubular adenoma (~12/2020) Surgical History? History of colonoscopy (~12/2020) History of foot surgery Bilateral haglauds deformityHx of tubal ligation Social History/Home Situation: Lives with in a private home with 1 high step to enter with a rail on one side.? Independent with all aspects of ADLs prior to admission.? 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 Equipment Owned/DME: FWW, 4WW Subjective: Denies headache, chest pain, and lightheadedness throughout session. Reported burning pain on bilateral surgical incision with the left more affected than the right, pleased with mobility performance. Objective: General Observation: Supine in stretcher.? Cold packs to B legs.? Mepilex Ag's over surgical incisions.? TEDS to B legs. Mental Status: Alert and oriented x 4 Pain: 3-4/10 in hips and low back ROM: Right Lower Extremity: Hip flexion WFL. Hip abduction WFL. Knee flexion 0 to 120 degrees. Ankle dorsiflexion WFL. Ankle plantarflexion WFL. Left Lower Extremity: Hip flexion WFL. Hip abduction WFL. Knee flexion 0 to 120 degrees. Ankle WFL. Ankle plantarflexion WFL. Strength: Right Lower Extremity: Hip flexors 4-/5. Hip abductors 4-/5. Knee flexors 4/5. Knee extensors 4/5. Ankle dorsiflexors 4/5. Ankle plantarflexors 4/5. Left Lower Extremity: Hip flexors 4-/5. Hip abductors 4-/5. Knee flexors 4/5. Knee extensors 4/5. Ankle dorsiflexors 4/5. Ankle plantarflexors 4/5. Sensation: Burning sensation in B surgical incisions, L more affected than R but subsided with walking Bed Mobility/Transfers: Supine to sit stand by assist Sit to stand stand by assist Stand to sit stand by assist Bed to chair stand by assist Gait: 150 feet using FWW with step-through gait pattern requiring stand by assist. Initially was favoring the left hip due to more burning feeling felt on that side but sensation improved later in the walk and patient was able to stand taller and was able to walk with more stability. Denies lightheadedness, chast pain, and headache. Balance: Static Sitting: Normal Dynamic Sitting: Normal Static Standing: Fair Dynamic Standing: Fair Special Tests: Mobility Limitations Standardized Measure [facility] 6 clicks Basic Mobility Inpatient Short Form: Raw Score: 22? CMS Score:21% deficit Informed Consent/Education:? Patient instructed in purpose of PT consult.? Packet containing ROCAEL exercise protocol has been given to patient and .? Education and training on initial set of exercises that can be done at home have been completed with patient and . Assessment: Center requires the use of a front wheel walker to maximize independence and reduce fall risk at home. Patient presents with clinical signs and symptoms consistent with current/admitting diagnoses that have resulted to mobility limitations, gait instability, generalized weakness, and impairment of motor control as demonstrated by the following impairment level findings: 1.? Decreased strength to B hip major muscle groups 2.? Impaired standing balance Impairments are contributing to the following functional limitations: 1.? Inability to safely ambulate without assistive device 2.? Increase completion time for mobility ADL performance 3.? Increased fall risk Patient is assessed as a 47457 moderate complexity based on the following: History: 62-year-old female with impairment level findings, functional limitations, and past medical history as indicated above Examination: Demonstrable impairment in strength, balance, and mobility level with underlying impairments and functional limitations as documented above Presentation: Evolving Decision Makin moderate complexity Goals: N/A.? PT evaluation and 1-2 treatment sessions only for functional mobility training using recommended AD and for HEP instruction. Plan of Care/Treatment Plan: N/A.? PT evaluation and 1-2 treatment session only for functional mobility training using recommended AD and for HEP instruction. DISCHARGE RECOMMENDATIONS: [] ? Home with no services [] [] ? Home with services [specify] [X] ? Home with outpatient PT.? Home when medically cleared by hospitalist.? Recommend outpatient PT services in order to optimize functional mobility outcomes and facilitate return to independent community ambulation without an assistive device. [] ? SNF for continued rehabilitation [] [] ? [facility] [] [] ? SNF versus LTC based on ability to participate and progress [] TREATMENT CODE/TIME: 65346 x 20 minutes, 96009 x 11 minutes beginning at 12:57 PM. Thank you for the opportunity to participate in the care of this patient. Triny Mata PT, DPT, CLT [facility] [place], [place]
--- NOTE | 2022-07-19 15:06 | W.ANESPOSTOP ---
Postoperative Evaluation Date, Time and Location Date Performed: 07/19/22 Time Performed: 15:20 Patient Location: Day Surgery Unit Vital Signs Most Recent Imported Vital Signs: Most Recent Vital Signs Temp Pulse Resp BP Pulse Ox 36.1 C L 68 18 114/66 99 07/19/22 13:23 07/19/22 13:23 07/19/22 13:23 07/19/22 13:23 07/19/22 13:23 Pain Score Most Recent Pain Score: Most Recent Pain Score Pain Level 4 07/19/22 13:23 Assessment Mental Status: Awake (Alert & Oriented to Patient Baseline) Airway and Respiratory Function: Patent airway with normal (patient baseline) respiratory exam Cardiovascular Function: Hemodynamically Stable Hydration Status: Adequately Hydrated Nausea & Vomiting: No Nausea or Vomiting Pain: Pain is tolerable per patient Peripheral Nerve Block: Patient did not receive a nerve block Postoperative Comments:: Spinal wearing off appropriately.
== END 2022-07-19 13:59 | disposition home or self-care (01) ==
PROVIDERS: PCP Nurse Practitioner Family; Visit Provider Student in an Organized Health Care Education/Training Program
PROC: 0SR90JZ Replacement of Right Hip Joint with Synthetic Substitute, Open Approach (ICD-10-PCS; CPT 27130; principal; 2022-07-19 07:30)
DX: M16.0 Bilateral primary osteoarthritis of hip; I10 Essential (primary) hypertension; E66.9 Obesity, unspecified
CPT/HCPCS: 27130; 20985; 97162; 97530; 73501; J0690; J1100; J1170; J2250; J2370; J2405

== ENCOUNTER 2022-08-01 14:44 | Outpatient (CLI) | payer BC, SELFPAY ==
--- NOTE | 2022-08-01 13:30 | DI.RAD_ITS ---
Exam(s) XR HIP PELVIS ADULT BL EXAM: XR HIP PELVIS ADULT BL CLINICAL HISTORY: 1ST POST OP BILAT THAs. TECHNIQUE: 2D digital imaging was performed. Three views. COMPARISON: CR XR PELVIS AP from 07/11/2022 XA XR HIP LT IN OR from 07/19/2022 XA XR HIP RT IN OR from 07/19/2022 FINDINGS: BONES: No acute fracture is present. No bony destructive lesion is seen. No change in alignment of the bilateral total hip prostheses. JOINTS: No dislocation present. SOFT TISSUE: Normal. IMPRESSION: Unremarkable bilateral hip prostheses. DATA REPOSITORY: RADIATION DOSE DELIVERED:
== END 2022-08-01 14:45 | disposition home or self-care (01) ==
LOC: DIORS 14:44
PROVIDERS: PCP Nurse Practitioner Family; Referring Provider Nurse Practitioner Family; Visit Provider Student in an Organized Health Care Education/Training Program
DX: Z96.643 Presence of artificial hip joint, bilateral (principal); Z47.1 Aftercare following joint replacement surgery
CPT/HCPCS: 73521

== ENCOUNTER → 2023-03-15 00:33 | Outpatient (CLI) | payer BC, SELFPAY ==
--- NOTE | 2023-03-15 | DI.MAMMO_ITS ---
Exam(s) MAMMO SCREENING EXAM: MAMMO SCREENING CLINICAL HISTORY: SCREENING, Z12.39 TECHNIQUE: Bilateral full field digital CC and MLO mammographic images were obtained with 3D tomosyn thesis and utilizing computer aided detection (CAD). COMPARISON: Available for comparison. FINDINGS: Masses/Architectural Distortion: None seen. Microcalcifications: No suspicious pleomorphic-type are seen. Skin Thickening/Nipple Retraction: None. IMPRESSION: 1. No significant interval change with no specific features of malignancy noted. 2. Unless there is more urgent need, screening mammography is recommended, as per [place] [employer] guidelines. BI-RADS Category 1 - Negative Breast Density - Category B - Scattered areas of fibroglandular density Breast density category C or D implies that the patient has dense breast tissue. Dense breast tissue is very common and is not abnormal but dense breast tissue can make it harder to find cancer on a ma mmogram. Also, dense breast tissue may increase their breast cancer risk. This information about the result of the mammogram report was provided to the patient to raise their awareness. Use this report when you speak with the patient about their risks for breast cancer, which includes their family hist ory. At that time, you may recommend for more screening tests (Ultrasound or MRI) as they might be us eful based on their risk. A negative radiographic report should not delay biopsy if a dominant or clinically suspicious mass is present. Up to ten percent of cancers are not identified on mammography. A negative report may reinforce clinical impression. Adenosis and dense breasts may obscure an underlying neoplasm. False positive reports average 6 to 10%. Patient will receive a letter notifying them of these results.
== END ==
PROVIDERS: PCP Nurse Practitioner Family; Visit Provider Nurse Practitioner Family
DX: Z12.31 Encounter for screening mammogram for malignant neoplasm of breast (principal); R92.323 Mammographic fibroglandular density, bilateral breasts
CPT/HCPCS: 77063; 77067

== ENCOUNTER 2023-05-10 10:35 | Outpatient (REF) | payer BC, SELFPAY ==
[2023-05-10 19:29] LABS: ALT 27 U/L (14-59); AST 19 U/L (15-37); Albumin 3.7 g/dL (3.4-5.0); Alkaline Phosphatase 95 U/L (46-116); Anion Gap 7.5 mmol/L (3-11); BUN 22 mg/dL (7-18); Bilirubin, Total 0.2 mg/dL (0.2-1.0); CO2 27.5 mmol/L (21.0-32.0); CREATININE 1.1 mg/dL (0.55-1.02); Calcium 9.2 mg/dL (8.5-10.1); Calculated LDL 192 mg/dL (<100); Chloride 103 mmol/L (98-107); Cholesterol 288 mg/dL (<200); Estimated GFR 56.46 (mL/min/1.73m2); Glucose 109 mg/dL (74-106); HDL Cholesterol 66 mg/dL (40-60); Potassium 4.4 mmol/L (3.5-5.1); Sodium 138 mmol/L (136-145); TSH (W/Ref FT4) 0.49 uIU/mL (0.36-3.74); Triglyceride 154 mg/dL (<150)
== END 2023-05-10 10:36 | disposition home or self-care (01) ==
LOC: NCHCN 10:35
PROVIDERS: PCP Nurse Practitioner Family; Visit Provider Nurse Practitioner Family
DX: Z13.220 Encounter for screening for lipoid disorders (principal); I10 Essential (primary) hypertension
CPT/HCPCS: 80053; 80061; 84443

== ENCOUNTER 2023-08-28 10:47 | Outpatient (CLI) | payer BC, SELFPAY ==
--- NOTE | 2023-08-28 09:15 | DI.RAD_ITS ---
Exam(s) XR HIP PELVIS ADULT BL EXAM: XR HIP PELVIS ADULT BL CLINICAL HISTORY: ANNUAL F/U BILAT THAs. TECHNIQUE: 2D digital imaging was performed. Three images were obtained. AP pelvis and bilateral la teral hips views were obtained. COMPARISON: CR XR HIP PELVIS ADULT BL from 08/01/2022 FINDINGS: BONES: There are stable post operative changes of a bilateral total hip replacements present. No fra cture or dislocation. JOINTS: The orthopedic hardware is in good position. No evidence of hardware loosening. SOFT TISSUE: Normal. IMPRESSION: Stable bilateral total hip replacements. DATA REPOSITORY: RADIATION DOSE DELIVERED:
--- NOTE | 2023-08-28 09:15 | DI.RAD_ITS ---
Exam(s) XR KNEE LT 2V AP,LAT EXAM: XR KNEE LT 2V AP,LAT CLINICAL HISTORY: ANNUAL F/U BILAT TKAs. TECHNIQUE: 2D digital imaging was performed. Two images were obtained. AP and lateral views were ob tained. COMPARISON: CR XR KNEE LT 1V from 05/05/2022 CR XR STANDING ALIGNMENT from 05/05/2022 FINDINGS: BONES: There are stable post operative changes of a left total knee replacement present. No fracture or dislocation. JOINTS: The orthopedic hardware is in good position. No evidence of hardware loosening. SOFT TISSUE: Normal. IMPRESSION: Stable left total knee replacement. DATA REPOSITORY: RADIATION DOSE DELIVERED:
--- NOTE | 2023-08-28 09:15 | DI.RAD_ITS ---
Exam(s) XR KNEE RT 2V AP,LAT EXAM: XR KNEE RT 2V AP,LAT CLINICAL HISTORY: ANNUAL F/U BILAT TKAs. TECHNIQUE: 2D digital imaging was performed. Two images were obtained. AP and lateral views were ob tained. COMPARISON: CR XR STANDING ALIGNMENT from 05/05/2022 CR XR KNEE RT 1V from 05/05/2022 FINDINGS: BONES: There are stable post operative changes of a right total knee replacement present. No fractur e or dislocation. JOINTS: The orthopedic hardware is in good position. No evidence of hardware loosening. SOFT TISSUE: Normal. IMPRESSION: Stable right total knee replacement. DATA REPOSITORY: RADIATION DOSE DELIVERED:
== END 2023-08-28 10:48 | disposition home or self-care (01) ==
LOC: DIORS 10:48
PROVIDERS: PCP Nurse Practitioner Family; Referring Provider Nurse Practitioner Family; Visit Provider Student in an Organized Health Care Education/Training Program
DX: Z96.643 Presence of artificial hip joint, bilateral (principal); Z96.653 Presence of artificial knee joint, bilateral; Z47.1 Aftercare following joint replacement surgery
CPT/HCPCS: 73521; 73560